=== PATIENT | male | born 1950 | race Caucasian/White ===

== ENCOUNTER 2017-01-06 10:38 | Inpatient (IN) | payer MEDICARE ==
[2017-01-06] MEDS ORDERED: CLINDAMYCIN 900 MG PREMIX IVPB 900 MG/50 ML BAG IVPB ONE (10:46)
--- NOTE | 2017-01-06 10:46 | PDOC ---
History of Present Illness - General Stated Complaint: FACIAL ABSCESS Time Seen by Provider: 01/06/17 10:45 Past History - Past Medical History Allergies/Adverse Reactions: Allergies Allergy/AdvReac Type Severity Reaction Status Date / Time Penicillins Allergy PAIN ALL Verified 01/06/17 10:46 OVER BODY Sulfa (Sulfonamide Allergy LOOSE LEGS Verified 01/06/17 10:46 Antibiotics) [id number]-201 Allergy Verified 01/06/17 10:46 THALLIUM Allergy Uncoded 02/09/16 15:05 Home Medications: Ambulatory Orders Albuterol Sulfate Inhaler - [Ventolin HFA Inhaler -] 2 inh PO Q4H PRN 08/02/14 Metoprolol Succinate [Toprol Xl] 75 mg PO DAILY 08/02/14 Multivitamins [Multivit ([facility] Form[facility])] 1 tab PO DAILY 08/02/14 Naproxen [Naprosyn -] 500 mg PO PRN PRN 08/02/14 Omeprazole [Prilosec] 20 mg PO DAILY 08/02/14 Salmeterol/Fluticasone [Advair 250Mcg/50Mcg -] 1 inh PO DAILY 09/19/14 Aspirin Coated [Ecotrin -] 325 mg PO DAILY 01/06/17 Oxycodone HCl/Acetaminophen [Percocet 10-325 mg Tablet] 1 each PO ASDIR PRN Asthma: Yes Cardiac Disorders: Yes (CARDIAC ARRHYTHMIA) COPD: Yes GI Disorders: Yes (REFLUX, ULCERATIVE COLITIS) Disorders: Yes (BPH) HTN: Yes Kidney Stones: Yes - Surgical History Cardiac Surgery: Yes (ANGIOPLASTY) Cholecystectomy: Yes Orthopedic Surgery: Yes (B/L ROTATOR CUFF) - Immunization History Immunization Up to Date: Yes - Suicide/Smoking/Psychosocial Hx Smoking Status: Yes Smoking History: Never smoked Have you smoked in the past 12 months: No Number of Cigarettes Smoked Daily: 0 If you are a former smoker, when did you quit?: 35 YEARS AGO Hx Alcohol Use: No Drug/Substance Use Hx: No Substance Use Type: None ED Treatment Course - LABORATORY CBC & Chemistry Diagram: 01/06/17 10:50 01/06/17 10:50 *DC/Admit/Observation/Transfer Diagnosis at time of Disposition: Facial cellulitis, Phlegmon Total knee replacement status Qualifiers: Laterality: right Qualified Code(s): Z96.651 - Presence of right artificial knee joint - Discharge Dispostion Condition at time of disposition: Stable Admit: Yes - Referrals - Patient Instructions - Post Discharge Activity
[2017-01-06 10:51] VITALS: BMI 33.2
[2017-01-06] MEDS ORDERED: DEXAMETHASONE SOD PHOSPHATE 10 MG/1 ML VIAL IVPUSH ONE (10:51)
[2017-01-06] MEDS ORDERED: DEXAMETHASONE SOD PHOSPHATE 10 MG/1 ML VIAL ONE (11:01)
[2017-01-06] MEDS ORDERED: CLINDAMYCIN PHOSPHATE 300 MG/2 ML VIAL ONE ×2 (11:01→11:03)
[2017-01-06] MEDS ORDERED: CLINDAMYCIN PHOSPHATE 600 MG/4 ML VIAL ONE (11:02)
[2017-01-06 11:26] LABS: BASOPHIL 0.7 % (0-2.0); MCH 30.6 pg (25.7-33.7); MCHC 33.6 g/dl (32.0-35.9); MEAN CELL VOLUME 91.2 fl (80-96); MEAN PLT VOLUME 10.4 fl (7.5-11.1); NEUTROPHILS 64.9 % (42.8-82.8); PLATELET COUNT 189 K/MM3 (134-434); RDW 12.9 % (11.9-15.9); WHITE BLOOD COUNT 9.7 K/mm3 (4.0-10.8)
[2017-01-06 11:46] LABS: ALBUMIN 3.8 g/dl (3.5-5.0); ALK PHOS 107 U/L (32-92); ANION GAP 7 (8-16); BILIRUBIN,TOTAL 0.8 mg/dl (0.2-1.0); CALCIUM 9.5 mg/dl (8.4-10.2); CO2 27 mmol/L (22-28); CREATININE 0.9 mg/dl (0.6-1.3); GLUCOSE,RANDOM 119 mg/dl (74-106); SGOT/AST 27 U/L (10-42); SGPT/ALT 29 U/L (10-40); TOT PROT 6.9 g/dl (6.4-8.3)
--- NOTE | 2017-01-06 16:40 | HP ---
CHIEF COMPLAINT: Left-sided facial abscess draining pus PCP: Dr. Prakash Ortho: Dr. Desai HISTORY OF PRESENT ILLNESS: 66 year-old man with a PMH significant for HTN, COPD, GERD, polychythemia vera ( last phlebotomized 4-5 years ago), and s/p right TKR 3 weeks ago. Patient noticed a bump on the lower left side of his face two days ago. The bump developed multiple pustules and the patient squeezed a large amount of pus. He noticed a fibrinous material hanging from his face which he removed and it was a white perforated sac. Patient states he had two leftover levofloxacin from an earlier illness and he took one dose two days ago, and one dose yesterday, before coming to the hospital. ER course was notable for: (1) BP 160/98 (2) CT facial bones: focal area of skin thickening with skin defect and subq fat stranding/phlegmon overlying ventral left mandibular body Recent Travel: No PAST MEDICAL HISTORY: Hypertension COPD GERD Polycythemia vera PAST SURGICAL HISTORY: Right total knee replacement x 3 weeks ([facility]) Bilateral rotator cuff repairs Social History: Smoking: no Alcohol: no Drugs: no Family History: Mother age 42 breast cancer; father age 49 accident; 1 brother a&w; 2 sisters, one with non-Hodgkins lymphoma in remission Allergies Penicillins Allergy (Verified 01/06/17 10:46) PAIN ALL OVER BODY Sulfa (Sulfonamide Antibiotics) Allergy (Verified 01/06/17 10:46) LOOSE LEGS thallium-201 Allergy (Verified 01/06/17 10:46) THALLIUM Allergy (Uncoded 02/09/16 15:05) HOME MEDICATIONS: Home Medications Medication Instructions Recorded Albuterol Sulfate Inhaler - 2 inh PO Q4H PRN 08/02/14 [Ventolin HFA Inhaler -] Metoprolol Succinate [Toprol Xl] 75 mg PO DAILY 08/02/14 Multivitamins [Multivit ([facility] 1 tab PO DAILY 08/02/14 Formulary)] Naproxen [Naprosyn -] 500 mg PO PRN PRN 08/02/14 Omeprazole [Prilosec] 20 mg PO DAILY 08/02/14 Salmeterol/Fluticasone [Advair 1 inh PO DAILY 09/19/14 250Mcg/50Mcg -] Aspirin Coated [Ecotrin -] 325 mg PO DAILY 01/06/17 Oxycodone HCl/Acetaminophen 1 each PO ASDIR PRN 01/06/17 [Percocet 10-325 mg Tablet] REVIEW OF SYSTEMS CONSTITUTIONAL: Absent: fever, chills, diaphoresis, generalized weakness, malaise, loss of appetite, weight change HEENT: Absent: rhinorrhea, nasal congestion, throat pain, throat swelling, difficulty swallowing, mouth swelling, ear pain, eye pain, visual changes CARDIOVASCULAR: Absent: chest pain, syncope, palpitations, irregular heart rate, lightheadedness , peripheral edema RESPIRATORY: Absent: cough, shortness of breath, dyspnea with exertion, orthopnea, wheezing, stridor, hemoptysis GASTROINTESTINAL: Absent: abdominal pain, abdominal distension, nausea, vomiting, diarrhea, constipation, melena, hematochezia GENITOURINARY: Absent: dysuria, frequency, urgency, hesitancy, hematuria, flank pain, genital pain MUSCULOSKELETAL: Absent: myalgia, arthralgia, joint swelling, back pain, neck pain SKIN: Present: erythematous lump on left side of face draining pus, punctured fibrinous sac removed by patient; chronic itchiness Absent: rash, itching, pallor HEMATOLOGIC/IMMUNOLOGIC: Absent: easy bleeding, easy bruising, lymphadenopathy, frequent infections ENDOCRINE: Absent: unexplained weight gain, unexplained weight loss, heat intolerance, cold intolerance NEUROLOGIC: Absent: headache, focal weakness or paresthesias, dizziness, unsteady gait, seizure, mental status changes, bladder or bowel incontinence PSYCHIATRIC: Absent: anxiety, depression, suicidal or homicidal ideation, hallucinations. PHYSICAL EXAMINATION Vital Signs - 24 hr 01/06/17 01/06/17 01/06/17 10:40 11:45 14:15 Temperature 98 F 98.1 F Pulse Rate 96 H Pulse Rate [ 81 87 Left Apical] Respiratory 18 16 16 Rate Blood Pressure 160/98 Blood Pressure 130/80 151/68 [Right Arm] O2 Sat by Pulse 97 98 99 Oximetry (%) 01/06/17 15:15 Temperature 98.1 F Pulse Rate 87 Pulse Rate [ Left Apical] Respiratory 16 Rate Blood Pressure 157/84 Blood Pressure [Right Arm] O2 Sat by Pulse 99 Oximetry (%) GENERAL: Awake, alert, and fully oriented, in no acute distress. HEAD/FACE: Wound over the left mandible, 1cm in diameter, 0.5cm deep; area of surrounding induration 1.5cm H x 3cm W; could not express pus; mild purulent drainage on dressing EYES: Pupils equal, round and reactive to light, extraocular movements intact, sclera anicteric, conjunctiva clear. No ptosis. EARS, NOSE, THROAT: Ears normal, nares patent, oropharynx clear without exudates. Moist mucous membranes. NECK: Normal range of motion, supple without lymphadenopathy, JVD, or masses. LUNGS: Breath sounds equal, clear to auscultation bilaterally. No wheezes, and no crackles. No accessory muscle use. HEART: Regular rate and rhythm, normal S1 and S2 without murmur, rub or gallop. ABDOMEN: Soft, nontender, not distended, normoactive bowel sounds, no guarding, no rebound, no masses. MUSCULOSKELETAL: Normal range of motion at all joints. No bony deformities or tenderness. No CVA tenderness. UPPER EXTREMITIES: 2+ pulses, warm, well-perfused. No cyanosis. No clubbing. No peripheral edema. LOWER EXTREMITIES: 2+ pulses, warm, well-perfused. No calf tenderness. No peripheral edema. Right knee surgical scar well-healed. NEUROLOGICAL: Cranial nerves II-XII intact. Normal speech. Normal gait. PSYCHIATRIC: Cooperative. Good eye contact. Appropriate mood and affect. SKIN: Warm, dry, normal turgor Laboratory Results - last 24 hr 01/06/17 01/06/17 01/06/17 10:50 10:50 10:50 WBC 9.7 RBC 4.55 Hgb 13.9 D Hct 41.5 MCV 91.2 MCH 30.6 MCHC 33.6 RDW 12.9 Plt Count 189 MPV 10.4 Neutrophils % 64.9 Lymphocytes % 11.4 D Monocytes % 11.0 H Eosinophils % 12.0 H Basophils % 0.7 ESR Sodium 135 L Potassium 4.3 Chloride 101 Carbon Dioxide 27 Anion Gap 7 L BUN 32 H D Creatinine 0.9 D Creat Clearance w eGFR > 60 Random Glucose 119 H D Lactic Acid 1.5 Calcium 9.5 Total Bilirubin 0.8 D AST 27 ALT 29 Alkaline Phosphatase 107 H C-Reactive Protein Total Protein 6.9 Albumin 3.8 01/06/17 01/06/17 10:50 10:50 WBC RBC Hgb Hct MCV MCH MCHC RDW Plt Count MPV Neutrophils % Lymphocytes % Monocytes % Eosinophils % Basophils % ESR 35 H Sodium Potassium Chloride Carbon Dioxide Anion Gap BUN Creatinine Creat Clearance w eGFR Random Glucose Lactic Acid Calcium Total Bilirubin AST ALT Alkaline Phosphatase C-Reactive Protein 3.9 H Total Protein Albumin ASSESSMENT/PLAN 66 year-old man with a PMH significant for HTN, COPD, GERD, polychythemia vera, and s/p right TKR 3 weeks ago. Admitted for facial abscess requiring IV antibiotics in the setting of recent TKR. Facial abscess --CT shows phlegmon overlying the left mandibular body --Vanc x 1 dose, levofloxacin IV, and clindamycin IV (PCN allergic) --blood cultures pending; patient self-treated with levaquin PO x 2 doses prior to arrival --ID consult requested --if needs I&D, may need oral maxillofacial surgeon and transfer S/p right TKR x 3 weeks --incision is well-healed --on full-dose ASA; will increase to BID for post-surgical prosthetic prophylaxis --Protonix for GI prophylaxis --percocet PRN Hypertension --continue Toprol XL COPD --stable, no acute issues --continue albuterol and Advair inhalers GERD --Protonix Polycythemia vera Elevated alk phos --last phlebotomized 4-5 years ago but chronic itchiness is a symptom of PCV --Hct is well below 60 so no immediate indication for phlebotomy --needs outpatient follow up --monitor LFTs F/E/N Fluids: PO intake adequate Electrolytes: replete as indicated Nutrition: low sodium DVT prophylaxis: subq heparin, oob, ambulation Physical therapy evaluation since s/p TKR Dispo: continues to require inpatient care. Full code. Visit type - Emergency Visit Emergency Visit: Yes ED Registration Date: 01/06/17 Care time: The patient presented to the Emergency Department on the above date and was hospitalized for further evaluation of their emergent condition. - New Patient This patient is new to me today: Yes Date on this admission: 01/07/17 - Critical Care Critical Care patient: No
--- NOTE | 2017-01-06 18:22 | RAPID ---
Physical Examination Vital Signs: Vital Signs Temperature 98.1 F 01/06/17 15:15 Pulse Rate 87 01/06/17 15:15 Respiratory Rate 16 01/06/17 15:15 Blood Pressure 157/84 01/06/17 15:15 O2 Sat by Pulse Oximetry (%) 99 01/06/17 15:15 Labs: CBC, BMP 01/06/17 10:50 01/06/17 10:50
[2017-01-06] MEDS ORDERED: PIPERACILLIN/TAZOB 3.375 GM 50 ML IVPB SCH (19:45)
[2017-01-06] MEDS ORDERED: VANCOMYCIN 1,500 MG in DEXTROSE 5%-WATER - 250 ML IVPB SCH (19:45)
[2017-01-06] MEDS: CLINDAMYCIN 600MG PREMIX IVPB 600 MG/50 ML BAG IVPB SCH (20:38)
[2017-01-06] MEDS ORDERED: VANCOMYCIN 1,500 MG in DEXTROSE 5%-WATER - 500 ML IVPB ONE (21:15)
[2017-01-06] MEDS ORDERED: LEVOFLOXACIN 500 MG IVPB 500 MG/100 ML BAG IVPB ONE (21:15)
[2017-01-06] MEDS: POTASSIUM CHLORIDE TABS 20 MEQ TABLET.ER (FP) PO SCH (22:01)
[2017-01-07] MEDS ORDERED: ALBUTEROL SO4 18 GM HFA INHALER IH PRN (02:25)
[2017-01-07] MEDS ORDERED: FLUTICASONE/SALMETEROL 100 MCG/50 MCG DISKUS IH SCH (02:30)
[2017-01-07] MEDS: CLINDAMYCIN 600MG PREMIX IVPB 600 MG/50 ML BAG IVPB SCH (02:39)
[2017-01-07] MEDS: POTASSIUM CHLORIDE TABS 20 MEQ TABLET.ER (FP) PO SCH (03:44)
[2017-01-07 07:51] LABS: MCH 31.4 pg (25.7-33.7); MCHC 34.5 g/dl (32.0-35.9); MEAN CELL VOLUME 91.1 fl (80-96); PLATELET COUNT 207 K/MM3 (134-434); RDW 12.9 % (11.9-15.9); WHITE BLOOD COUNT 11.8 K/mm3 (4.0-10.8)
[2017-01-07 08:09] LABS: ALBUMIN 3.5 g/dl (3.5-5.0); ALK PHOS 97 U/L (32-92); ANION GAP 6 (8-16); CALCIUM 9.5 mg/dl (8.4-10.2); CO2 24 mmol/L (22-28); CREATININE 0.7 mg/dl (0.6-1.3); GLUCOSE,RANDOM 119 mg/dl (74-106); MAGNESIUM 1.9 mg/dL (1.8-2.4); SGOT/AST 24 U/L (10-42); SGPT/ALT 30 U/L (10-40); TOT PROT 6.5 g/dl (6.4-8.3)
[2017-01-07] MEDS: VANCOMYCIN 1,000 MG in DEXTROSE 5%-WATER - 250 ML IVPB SCH ×2 (08:30→20:39)
[2017-01-07] MEDS ORDERED: PT OWN MED DRAWER 7, Y5N ONE (09:22)
[2017-01-07] MEDS: PANTOPRAZOLE 40 MG TABLET (FP) PO SCH (09:30)
[2017-01-07] MEDS: MULTIVITAMINS (DAILY MVI) TABLET (FP) PO SCH (09:30)
[2017-01-07] MEDS: METOPROLOL SUCCINATE 50 MG TAB.SR.24H (FP) PO SCH (09:30)
[2017-01-07] MEDS: ASPIRIN 325 MG ENTERIC COATED TABLET (FP) PO SCH ×2 (09:30→21:23)
[2017-01-07] MEDS: HEPARIN NA (PORCINE) 5,000 UNITS/ML 1ML VIAL SQ SCH ×2 (09:32→21:23)
[2017-01-07] MEDS: FLUTICASONE/SALMETEROL 100 MCG/50 MCG DISKUS IH SCH ×2 (09:32→21:23)
[2017-01-07] MEDS ORDERED: ASPIRIN 325 MG ENTERIC COATED TABLET (FP) PO SCH (10:00)
[2017-01-07] MEDS ORDERED: LEVOFLOXACIN 500 MG IVPB 500 MG/100 ML BAG IVPB SCH (10:00)
[2017-01-07] MEDS ORDERED: LEVOFLOXACIN 500 MG IVPB 500 MG/100 ML BAG IVPB ONE (10:00)
--- NOTE | 2017-01-07 13:33 | PN ---
Physical Exam: SUBJECTIVE: Patient seen and examined. OBJECTIVE: Vital Signs Period Temp Pulse Resp BP Sys/Bear Pulse Ox Last 24 Hr 98.1 F-98.6 F 78-87 16-16 151-157/68-84 96-99 GENERAL: The patient is awake, alert, and fully oriented, in no acute distress. HEAD: Normal with no signs of trauma. Draining non-fluctuant area noted to left mandible. LUNGS: Breath sounds equal, clear to auscultation bilaterally, no wheezes, no crackles, no accessory muscle use. HEART: Regular rate and rhythm, S1, S2 without murmur, rub or gallop. ABDOMEN: Soft, nontender, nondistended, normoactive bowel sounds, no guarding, no rebound, no hepatosplenomegaly, no masses. EXTREMITIES: 2+ pulses, warm, well-perfused, no edema. Surgical incisions c/d/i and open to air. NEUROLOGICAL: Cranial nerves II through XII grossly intact. Normal speech, gait not observed. PSYCH: Normal mood, normal affect. SKIN: Warm, dry, normal turgor, no rashes or lesions noted Laboratory Results - last 24 hr 01/07/17 01/07/17 07:41 07:41 WBC 11.8 H RBC 4.16 Hgb 13.1 Hct 37.9 MCV 91.1 MCH 31.4 MCHC 34.5 RDW 12.9 Plt Count 207 MPV 10.0 Sodium 134 L Potassium 4.8 Chloride 104 Carbon Dioxide 24 Anion Gap 6 L BUN 22 H D Creatinine 0.7 D Creat Clearance w eGFR > 60 Random Glucose 119 H Calcium 9.5 Magnesium 1.9 Total Bilirubin 1.0 D AST 24 ALT 30 Alkaline Phosphatase 97 H Total Protein 6.5 Albumin 3.5 Active Medications Generic Name Dose Route Start Last Admin Trade Name Freq PRN Reason Stop Dose Admin Albuterol Sulfate 2 puff 01/07/17 02:25 Ventolin Hfa Inhaler - IH Q4H PRN WHEEZING Aspirin 325 mg 01/07/17 10:00 01/07/17 09:30 Ecotrin - PO 325 mg BID TARA Administration Heparin Sodium (Porcine) 5,000 unit 01/07/17 10:00 01/07/17 09:32 Heparin - SQ 5,000 unit TID TARA Administration Levofloxacin 500 mg in 100 mls @ 100 mls/hr 01/07/17 10:00 01/07/17 09:30 Levaquin 500 Mg Premixed Ivpb - IVPB 100 mls/hr DAILY TARA Administration Vancomycin HCl 1,000 mg/ 250 mls @ 200 mls/hr 01/07/17 08:30 01/07/17 08:30 Dextrose IVPB 200 mls/hr Q12H TARA Administration Metoprolol Succinate 75 mg 01/07/17 10:00 01/07/17 09:30 Toprol Xl - PO 75 mg DAILY TARA Administration Multivitamins/Minerals/Vitamin C 1 tab 01/07/17 10:00 01/07/17 09:30 Tab-A-Vit - PO 1 tab DAILY TARA Administration Oxycodone/Acetaminophen 1 combo 01/06/17 21:36 01/06/17 22:01 Percocet 5/325 - PO 1 combo Q6H PRN Administration PAIN LEVEL 6-10 Pantoprazole Sodium 40 mg 01/07/17 10:00 01/07/17 09:30 Protonix - PO 40 mg DAILY TARA Administration Fluticasone/Salmeterol 1 puff 01/07/17 10:00 01/07/17 09:32 Advair 100mcg/50mcg - IH 1 puff BID TARA Administration Imaging: EXAM#: TYPE/EXAM: RESULT: [id number] CT/FACIAL BONES CT W/O CONTRAST EXAM: CT facial bones without contrast. INDICATION: Facial abscess. TECHNIQUE: Axial noncontrast CT of the facial bones with coronal and sagittal reformations. COMPARISON: None available. FINDINGS: Evaluation for abscess/ drainable collection is limited without IV contrast. There is focal area of skin thickening with stranding and soft tissue in the subcutaneous fat overlying the ventral left mandibular body. There is a focal skin defect at this level. There is thickening of the platysma muscles. The mandibles are dentulous. There is no significant periapical lucency. No evidence of osseous destruction. There is mild mucosal thickening in the maxillary sinuses. The ostiomeatal complexes are patent. There are postsurgical changes in the right sinonasal cavity. Mild mucosal thickening present along bilateral anterior ethmoid air cells and right frontal sinus. The sphenoid sinuses are hypoplastic with small retention cyst in the right sphenoid sinus and small volume of fluid in the left sphenoid sinus. The left sphenoethmoidal is obscured. The nasal septum is deviated left. Bony rice of the orbits are intact. Globes are round and symmetric. Retrobulbar fat is maintained. There is cervical spondylosis. There is calcific atherosclerosis along bilateral carotid bifurcations, cervical internal carotid arteries and intradural vertebral arteries. IMPRESSION : Focal area of skin thickening with skin defect and subcutaneous fat stranding/ phlegmon overlying the ventral left mandibular body. No evidence of drainable collection, within the limitations of no IV contrast. Reported By: Ant Bunn DO 01/06/17 1312 ASSESSMENT/PLAN: A: 66 year-old man with a PMH significant for HTN, COPD, GERD, polychythemia vera, and s/p right TKR 3 weeks ago. Admitted for facial abscess requiring IV antibiotics in the setting of recent TKR. Facial abscess - continue Vancomycin 1g bid - stop levofloxacin and clindamycin - blood cultures pending - wound cx prelim- presumptive MRSA - ID consult requested - will transfer if needs [facility] for I&D S/p right TKR x 3 weeks - incision is well-healed - ASA bid - Protonix for GI prophylaxis - percocet PRN Leukocytosis - continue vancomycin 1g bid - trend CBC Hypertension - continue Toprol XL h/o COPD - stable - continue albuterol and Advair inhalers GERD - Protonix Polycythemia vera - last phlebotomized 4-5 years ago but chronic itchiness is a symptom of PCV - Hct normal - needs outpatient follow up - monitor LFTs F/E/N - Low Na diet DVT prophylaxis - sqh - oob Physical therapy evaluation since s/p TKR Dispo: continues to require inpatient care. Code Status- Full code. Visit type - Emergency Visit Emergency Visit: Yes ED Registration Date: 01/06/17 Care time: The patient presented to the Emergency Department on the above date and was hospitalized for further evaluation of their emergent condition. - New Patient This patient is new to me today: Yes Date on this admission: 01/07/17 - Critical Care Critical Care patient: No
--- NOTE | 2017-01-07 16:04 | PN ---
Progress Note (short form) - Note Progress Note: ID Consult dictated Facial abscess, probable MRSA Leukocytosis PCN/Sulfa allergies Await c/s Continue vancomycin Contact precautions
--- NOTE | 2017-01-07 19:57 | CONS ---
DATE OF CONSULTATION: DATE OF DICTATION: 01/07/2017 HISTORY OF PRESENT ILLNESS: The patient is a 66-year-old male evaluated for a soft tissue abscess of the left face. The patient was admitted to the hospital on January 06, 2017. He reports that approximately 2 to 3 days prior to admission, he had developing developed a "bump" on his left jaw area. He subsequently noted pustules from which he squeezed pus. The patient had Levaquin at home from a previous illness and took one or two doses of this. The area became progressively more swollen and erythematous. He presented to the hospital where he was found to have a soft tissue abscess of the left mandibular area. He was admitted to the hospital and empirically treated with vancomycin, Zosyn and clindamycin. His course was complicated by an elevated white blood cell count. A CT scan was obtained and showed a focal area of skin thickening in the left submandibular area with fat stranding and phlegmon with no evidence of drainable collection. A wound culture is now growing presumptive MRSA. The patient denies any associated fever or chills. PAST MEDICAL HISTORY: Positive for COPD, hypertension, gastroesophageal reflux, benign prostatic hypertrophy, polycythemia vera. ALLERGIES: PENICILLIN AND SULFA. (The patient had developed generalized body pain with PENICILLIN and "loose legs" with SULFA.) MEDICATIONS: Albuterol, metoprolol, Naprosyn, Prilosec, Advair, Ecotrin, aspirin. PAST SURGICAL HISTORY: Status post right total knee replacement approximately three weeks prior to admission. SYSTEMS REVIEW: Neurologic: No loss of consciousness, seizure, focal weakness. Cardiac: Negative for chest pain or palpitations. Respiratory: Negative for cough or sputum production. Gastrointestinal: Positive for gastroesophageal reflux. Genitourinary: Negative for urinary tract infection. LAB DATA: White count 11.8, hematocrit 37.9, platelet count 207, BUN 22, creatinine 0.7. Blood cultures are preliminarily negative. Wound culture is growing presumptive MRSA. PHYSICAL EXAMINATION: GENERAL: The patient is awake and alert. He does not appear acutely toxic. VITALS: Temperature 98.2, blood pressure 153/86, pulse 78 and regular, respirations 18 per minute. HEENT: Sclerae anicteric. On examination of the face, there is an approximately 3- to 4-cm area of induration present in the left mid submandibular area. There is no fluctuance. It is exquisitely tender and slightly erythematous. There is no expressible pus. However, there is drainage noted on the sterile dressing. There is no palpable adenopathy. CARDIOVASCULAR: Heart sounds S1, S2. LUNGS: Clear. ABDOMEN: Soft and nontender. EXTREMITIES: Status post right total knee replacement. There is a surgical wound that appears to be healing well without evidence of infection. IMPRESSION: 1. Facial abscess; probable methicillin-resistant Staphylococcus aureus. 2. Leukocytosis. 3. PENICILLIN AND SULFA ALLERGIES. PLAN: 1. Await culture results. 2. Continue vancomycin. 3. Clinically and radiographically, there does not appear to be a drainable collection. The patient reports significant improvement on his IV antibiotic therapy. Should there be continued improvement, we may substitute oral antibiotic therapy in the next 24 hours based on susceptibilities. 4. Contact precautions. 5. We will follow this patient. Thank you for the kind referral. SHASHANK MARIANO M.D. [id number]
[2017-01-08] MEDS: HEPARIN NA (PORCINE) 5,000 UNITS/ML 1ML VIAL SQ SCH ×3 (06:17→21:34)
[2017-01-08] MEDS: VANCOMYCIN 1,000 MG in DEXTROSE 5%-WATER - 250 ML IVPB SCH ×2 (08:39→20:36)
[2017-01-08 08:50] LABS: BASOPHIL 0.8 % (0-2.0); EOSINOPHIL 11.9 % (0-4.5); MCH 30.9 pg (25.7-33.7); MCHC 33.7 g/dl (32.0-35.9); MEAN CELL VOLUME 91.9 fl (80-96); MEAN PLT VOLUME 10.9 fl (7.5-11.1); NEUTROPHILS 49.7 % (42.8-82.8); PLATELET COUNT 206 K/MM3 (134-434); RDW 12.8 % (11.9-15.9); WHITE BLOOD COUNT 9.8 K/mm3 (4.0-10.8)
[2017-01-08] MEDS ORDERED: PT OWN MED DRAWER 7, Y5N ONE (09:11)
[2017-01-08 09:16] LABS: ALBUMIN 3.3 g/dl (3.5-5.0); ALK PHOS 88 U/L (32-92); ANION GAP 9 (8-16); CO2 25 mmol/L (22-28); CREATININE 0.8 mg/dl (0.6-1.3); GLUCOSE,RANDOM 88 mg/dl (74-106); SGOT/AST 22 U/L (10-42); SGPT/ALT 28 U/L (10-40); TOT PROT 5.8 g/dl (6.4-8.3)
[2017-01-08] MEDS: MULTIVITAMINS (DAILY MVI) TABLET (FP) PO SCH (09:17)
[2017-01-08] MEDS: ASPIRIN 325 MG ENTERIC COATED TABLET (FP) PO SCH ×2 (09:17→21:35)
[2017-01-08] MEDS: PANTOPRAZOLE 40 MG TABLET (FP) PO SCH (09:17)
[2017-01-08] MEDS: METOPROLOL SUCCINATE 50 MG TAB.SR.24H (FP) PO SCH (09:17)
[2017-01-08] MEDS: FLUTICASONE/SALMETEROL 100 MCG/50 MCG DISKUS IH SCH ×2 (09:17→21:36)
--- NOTE | 2017-01-08 09:19 | PN ---
Progress Note, Physician History of Present Illness: Lab reports + Blood c/s GPCCL x1 Reports less L facial pain and swelling Continued wound drainage Afebrile WBC 11.8 Wound c/s presumptive MRSA - Current Medication List Current Medications: Active Medications Albuterol Sulfate (Ventolin Hfa Inhaler -) 2 puff IH Q4H PRN PRN Reason: WHEEZING Aspirin (Ecotrin -) 325 mg PO BID [facility] Last Admin: 01/07/17 21:23 Dose: 325 mg Heparin Sodium (Porcine) (Heparin -) 5,000 unit SQ TID [facility] Last Admin: 01/08/17 06:17 Dose: 5,000 unit Vancomycin HCl 1,000 mg/ (Dextrose) 250 mls @ 200 mls/hr IVPB Q12H [facility] Last Admin: 01/08/17 08:39 Dose: 200 mls/hr Metoprolol Succinate (Toprol Xl -) 75 mg PO DAILY [facility] Last Admin: 01/07/17 09:30 Dose: 75 mg Multivitamins/Minerals/Vitamin C (Tab-A-Vit -) 1 tab PO DAILY [facility] Last Admin: 01/07/17 09:30 Dose: 1 tab Oxycodone/Acetaminophen (Percocet 5/325 -) 1 combo PO Q6H PRN PRN Reason: PAIN LEVEL 6-10 Last Admin: 01/08/17 01:27 Dose: 1 combo Pantoprazole Sodium (Protonix -) 40 mg PO DAILY [facility] Last Admin: 01/07/17 09:30 Dose: 40 mg Fluticasone/Salmeterol (Advair 100mcg/50mcg -) 1 puff IH BID [facility] Last Admin: 01/07/17 21:23 Dose: 1 puff - Objective Vital Signs: Vital Signs Temperature 97.8 F 01/08/17 05:00 Pulse Rate 75 01/08/17 05:00 Respiratory Rate 20 01/08/17 05:00 Blood Pressure 136/70 01/08/17 05:00 O2 Sat by Pulse Oximetry (%) 96 01/08/17 01:19 Constitutional: Yes: No Distress Eyes: Yes: Conjunctiva Clear HENT: Yes: Other (decreased swelling L submandibular area + induration. No fluctuance. + drainage on dressing) Cardiovascular: Yes: Regular Rate and Rhythm, S1, S2 Respiratory: Yes: CTA Bilaterally Gastrointestinal: Yes: Normal Bowel Sounds, Soft. No: Tenderness Extremities: Yes: Other (+ Healed surgical wound R Knee No erythema/ warmth/ tenderness) Labs: CBC, BMP 01/08/17 05:40 Assessment/Plan L facial abscess- probable MRSA + Blood c/s GPCCL possible sepsis secondary to skin source S/P R TKR Facial abscess improved Concerned about possible staph bacteremia in light of recent R TKR Await BC result Continue vancomycin. Check trough level. Contact precautions.
--- NOTE | 2017-01-08 11:48 | PN ---
Physical Exam: SUBJECTIVE: Patient seen and examined OBJECTIVE: Vital Signs Period Temp Pulse Resp BP Sys/Bear Pulse Ox Last 24 Hr 97.7 F-98.3 F 73-79 18-20 128-153/66-91 94-97 GENERAL: The patient is awake, alert, and fully oriented, in no acute distress. HEAD: Normal with no signs of trauma. EYES: PERRL, extraocular movements intact, sclera anicteric, conjunctiva clear. No ptosis. ENT: Ears normal, nares patent, oropharynx clear without exudates, moist mucous membranes. NECK: Trachea midline, full range of motion, supple. LUNGS: Breath sounds equal, clear to auscultation bilaterally, no wheezes, no crackles, no accessory muscle use. HEART: Regular rate and rhythm, S1, S2 without murmur, rub or gallop. ABDOMEN: Soft, nontender, nondistended, normoactive bowel sounds, no guarding, no rebound, no hepatosplenomegaly, no masses. EXTREMITIES: 2+ pulses, warm, well-perfused, Rt knee with mild,edema, s/p TKR , incision remains clean and dry NEUROLOGICAL: Cranial nerves II through XII grossly intact. Normal speech, gait not observed. PSYCH: Normal mood, normal affect. SKIN: left submandibular area,facial cellulitis with small amount sero- sanguineous drainage,dsg intact Laboratory Results - last 24 hr 01/07/17 01/08/17 01/08/17 07:41 05:40 05:40 WBC 9.8 RBC 4.25 Hgb 13.2 Hct 39.1 MCV 91.9 MCH 30.9 MCHC 33.7 RDW 12.8 Plt Count 206 MPV 10.9 Neutrophils % 49.7 D Lymphocytes % 27.1 D Monocytes % 10.5 H Eosinophils % 11.9 H Basophils % 0.8 Manual Slide Review No Result Required. Sodium 135 L Potassium 4.4 Chloride 101 Carbon Dioxide 25 Anion Gap 9 BUN 23 H Creatinine 0.8 Creat Clearance w eGFR > 60 Random Glucose 88 D Calcium 9.0 Total Bilirubin 1.0 AST 22 ALT 28 Alkaline Phosphatase 88 Total Protein 5.8 L Albumin 3.3 L Vancomycin Pre-Dose 01/08/17 08:40 WBC RBC Hgb Hct MCV MCH MCHC RDW Plt Count MPV Neutrophils % Lymphocytes % Monocytes % Eosinophils % Basophils % Manual Slide Review Sodium Potassium Chloride Carbon Dioxide Anion Gap BUN Creatinine Creat Clearance w eGFR Random Glucose Calcium Total Bilirubin AST ALT Alkaline Phosphatase Total Protein Albumin Vancomycin Pre-Dose 9.659 Active Medications Generic Name Dose Route Start Last Admin Trade Name Freq PRN Reason Stop Dose Admin Albuterol Sulfate 2 puff 01/07/17 02:25 Ventolin Hfa Inhaler - IH Q4H PRN WHEEZING Aspirin 325 mg 01/07/17 10:00 01/08/17 09:17 Ecotrin - PO 325 mg BID TARA Administration Heparin Sodium (Porcine) 5,000 unit 01/07/17 10:00 01/08/17 06:17 Heparin - SQ 5,000 unit TID TARA Administration Vancomycin HCl 1,000 mg/ 250 mls @ 200 mls/hr 01/07/17 08:30 01/08/17 08:39 Dextrose IVPB 200 mls/hr Q12H TARA Administration Metoprolol Succinate 75 mg 01/07/17 10:00 01/08/17 09:17 Toprol Xl - PO 75 mg DAILY TARA Administration Multivitamins/Minerals/Vitamin C 1 tab 01/07/17 10:00 01/08/17 09:17 Tab-A-Vit - PO 1 tab DAILY TARA Administration Oxycodone/Acetaminophen 1 combo 01/06/17 21:36 01/08/17 01:27 Percocet 5/325 - PO 1 combo Q6H PRN Administration PAIN LEVEL 6-10 Pantoprazole Sodium 40 mg 01/07/17 10:00 01/08/17 09:17 Protonix - PO 40 mg DAILY TARA Administration Fluticasone/Salmeterol 1 puff 01/07/17 10:00 01/08/17 09:17 Advair 100mcg/50mcg - IH 1 puff BID TARA Administration CT facial bones without contrast: Focal area of skin thickening with skin defect and subcutaneous fat stranding/phlegmon overlying the ventral left mandibular body. No evidence of drainable collection, within the limitations of no IV contrast. ASSESSMENT/PLAN: This is a 66 year-old man with a PMH significant for HTN, COPD, GERD, polychythemia vera, and s/p right TKR 3 weeks ago. Admitted for facial abscess requiring IV antibiotics in the setting of recent TKR. *Facial abscess - continue Vancomycin 1g bid - stop levofloxacin and clindamycin - blood cultures + for presumptive MRSA - wound cx prelim- presumptive MRSA - ID consult input appreciated - will transfer if needs OMFS for I&D - afebrile, wbc - normalized *S/p right TKR x 3 weeks - incision is well-healed,no redness or signs of infection noted - ASA bid - Protonix for GI prophylaxis - Percocet PRN *Leukocytosis- resolved - continue vancomycin 1g bid - trend CBC *Hypertension - continue Toprol XL *h/o COPD- stable - continue albuterol and Advair inhalers *GERD - Protonix *Polycythemia vera - last phlebotomized 4-5 years ago but chronic itchiness is a symptom of PCV - Hct normal - needs outpatient follow up - LFTs -wnl F/E/N - Low Na diet DVT prophylaxis: Heparin SQ, OOB Physical therapy evaluation since s/p TKR Dispo: continues to require inpatient care. Code Status- Full code. Visit type - Emergency Visit Emergency Visit: Yes ED Registration Date: 01/06/17 Care time: The patient presented to the Emergency Department on the above date and was hospitalized for further evaluation of their emergent condition. - New Patient This patient is new to me today: Yes Date on this admission: 01/08/17 - Critical Care Critical Care patient: No
[2017-01-08] MEDS: VANCOMYCIN 1 GRAM (PRE-DOCKED) 1,000 MG/250 ML BAG IVPB SCH (21:07)
[2017-01-09] MEDS: HEPARIN NA (PORCINE) 5,000 UNITS/ML 1ML VIAL SQ SCH ×2 (06:30→21:21)
[2017-01-09] MEDS: ASPIRIN 325 MG ENTERIC COATED TABLET (FP) PO SCH (09:00)
[2017-01-09] MEDS: PANTOPRAZOLE 40 MG TABLET (FP) PO SCH (09:00)
[2017-01-09] MEDS: MULTIVITAMINS (DAILY MVI) TABLET (FP) PO SCH (09:00)
[2017-01-09] MEDS: VANCOMYCIN 1 GRAM (PRE-DOCKED) 1,000 MG/250 ML BAG IVPB SCH ×2 (09:01→20:48)
[2017-01-09] MEDS: METOPROLOL SUCCINATE 50 MG TAB.SR.24H (FP) PO SCH (09:01)
[2017-01-09] MEDS: FLUTICASONE/SALMETEROL 100 MCG/50 MCG DISKUS IH SCH ×2 (09:01→21:22)
--- NOTE | 2017-01-09 09:07 | PN ---
Progress Note, Physician History of Present Illness: Lab reports presumptive MRSA in blood L facial pain and swelling resolved Minimal wound drainage Afebrile WBC WNL - Current Medication List Current Medications: Active Medications Albuterol Sulfate (Ventolin Hfa Inhaler -) 2 puff IH Q4H PRN PRN Reason: WHEEZING Aspirin (Ecotrin -) 325 mg PO BID [facility] Last Admin: 01/09/17 09:00 Dose: 325 mg Heparin Sodium (Porcine) (Heparin -) 5,000 unit SQ TID [facility] Last Admin: 01/09/17 06:30 Dose: 5,000 unit Vancomycin HCl (Vancomycin (Pre-Docked)) 1,000 mg in 250 mls @ 200 mls/hr IVPB Q12H [facility] Last Admin: 01/09/17 09:01 Dose: 200 mls/hr Metoprolol Succinate (Toprol Xl -) 75 mg PO DAILY [facility] Last Admin: 01/09/17 09:01 Dose: 75 mg Multivitamins/Minerals/Vitamin C (Tab-A-Vit -) 1 tab PO DAILY [facility] Last Admin: 01/09/17 09:00 Dose: 1 tab Oxycodone/Acetaminophen (Percocet 5/325 -) 1 combo PO Q6H PRN PRN Reason: PAIN LEVEL 6-10 Last Admin: 01/09/17 06:29 Dose: 1 combo Pantoprazole Sodium (Protonix -) 40 mg PO DAILY [facility] Last Admin: 01/09/17 09:00 Dose: 40 mg Fluticasone/Salmeterol (Advair 100mcg/50mcg -) 1 puff IH BID [facility] Last Admin: 01/09/17 09:01 Dose: 1 puff - Objective Vital Signs: Vital Signs Temperature 98.1 F 01/09/17 05:55 Pulse Rate 88 01/09/17 05:55 Respiratory Rate 19 01/09/17 08:13 Blood Pressure 139/81 01/09/17 05:55 O2 Sat by Pulse Oximetry (%) 97 01/09/17 08:13 Constitutional: Yes: No Distress Eyes: Yes: Conjunctiva Clear HENT: Yes: Other (L submandibular swelling and tenderness nearly all resolved Minimal drainage on dressing) Cardiovascular: Yes: Regular Rate and Rhythm, S1, S2. No: Murmur Respiratory: Yes: CTA Bilaterally Gastrointestinal: Yes: Normal Bowel Sounds, Soft. No: Tenderness Extremities: Yes: Other (R TKR mild swelling No erythema/ warmth) Labs: CBC, BMP 01/08/17 05:40 01/08/17 05:40 Assessment/Plan L facial abscess- MRSA + Blood c/s presumptive MRSA S/P R TKR Facial abscess nearly resolved Concerned about possible MRSA in light of recent R TKR Await final BC result Continue vancomycin. Repeat BC Will need echo if BC +MRSA Contact precautions.
[2017-01-09 11:07] LABS: ALBUMIN 3.6 g/dl (3.5-5.0); ALK PHOS 105 U/L (32-92); ANION GAP 4 (8-16); BILIRUBIN,TOTAL 1.2 mg/dl (0.2-1.0); CO2 24 mmol/L (22-28); CREATININE 0.8 mg/dl (0.6-1.3); GLUCOSE,RANDOM 149 mg/dl (74-106); MAGNESIUM 1.8 mg/dL (1.8-2.4); SGOT/AST 30 U/L (10-42); SGPT/ALT 41 U/L (10-40); TOT PROT 6.2 g/dl (6.4-8.3)
[2017-01-09 11:15] LABS: MCH 31.2 pg (25.7-33.7); MCHC 34.6 g/dl (32.0-35.9); MEAN CELL VOLUME 90.4 fl (80-96); MEAN PLT VOLUME 10.7 fl (7.5-11.1); PLATELET COUNT 226 K/MM3 (134-434); RDW 13.1 % (11.9-15.9); WHITE BLOOD COUNT 9.4 K/mm3 (4.0-10.8)
--- NOTE | 2017-01-09 11:22 | PN ---
Physical Exam: SUBJECTIVE: Patient seen and examined, reports feeling better, denies any tactile fevers OBJECTIVE: Patient is a 66 year-old man with a PMH significant for HTN, COPD, GERD, polychythemia vera, and s/p right TKR 3 weeks ago. Admitted for facial abscess requiring IV antibiotics in the setting of recent TKR. Vital Signs Period Temp Pulse Resp BP Sys/Bear Pulse Ox Last 24 Hr 97.9 F-98.1 F 74-88 18-19 138-139/72-81 97-98 GENERAL: The patient is awake, alert, and fully oriented, in no acute distress. HEAD: Normal with no signs of trauma. EYES: PERRL, extraocular movements intact, sclera anicteric, conjunctiva clear. No ptosis. ENT: Ears normal, nares patent, oropharynx clear without exudates, moist mucous membranes. NECK: Trachea midline, full range of motion, supple. LUNGS: Breath sounds equal, clear to auscultation bilaterally, no wheezes, no crackles, no accessory muscle use. HEART: Regular rate and rhythm, S1, S2 without murmur, rub or gallop. ABDOMEN: Soft, nontender, nondistended, normoactive bowel sounds, no guarding, no rebound, no hepatosplenomegaly, no masses. EXTREMITIES: 2+ pulses, warm, well-perfused, no edema. RIGHT LOWER EXTREMITY: suture line to anterior knee, well approximated NEUROLOGICAL: Cranial nerves II through XII grossly intact. Normal speech, gait not observed. PSYCH: Normal mood, normal affect. SKIN: Warm, dry, normal turgor, no rashes or lesions noted, abscess submandible , no erythema no induration noted Laboratory Results - last 24 hr 01/09/17 01/09/17 10:00 10:00 WBC 9.4 RBC 4.44 Hgb 13.9 Hct 40.1 MCV 90.4 MCH 31.2 MCHC 34.6 RDW 13.1 Plt Count 226 MPV 10.7 Neutrophils % 59.3 Lymphocytes % 14.7 D Monocytes % 7.2 Eosinophils % 18.1 H Basophils % 0.7 Sodium 137 Potassium 4.1 Chloride 109 H Carbon Dioxide 24 Anion Gap 4 L BUN 21 H Creatinine 0.8 Creat Clearance w eGFR > 60 Random Glucose 149 H D Calcium 10.0 Magnesium 1.8 Total Bilirubin 1.2 H AST 30 D ALT 41 H D Alkaline Phosphatase 105 H Total Protein 6.2 L Albumin 3.6 Active Medications Generic Name Dose Route Start Last Admin Trade Name Freq PRN Reason Stop Dose Admin Albuterol Sulfate 2 puff 01/07/17 02:25 Ventolin Hfa Inhaler - IH Q4H PRN WHEEZING Aspirin 325 mg 01/07/17 10:00 01/09/17 09:00 Ecotrin - PO 325 mg BID TARA Administration Heparin Sodium (Porcine) 5,000 unit 01/07/17 10:00 01/09/17 06:30 Heparin - SQ 5,000 unit TID TARA Administration Vancomycin HCl 1,000 mg in 250 mls @ 200 mls/hr 01/08/17 20:30 01/09/17 09:01 Vancomycin (Pre-Docked) IVPB 200 mls/hr Q12H TARA Administration Metoprolol Succinate 75 mg 01/07/17 10:00 01/09/17 09:01 Toprol Xl - PO 75 mg DAILY TARA Administration Multivitamins/Minerals/Vitamin C 1 tab 01/07/17 10:00 01/09/17 09:00 Tab-A-Vit - PO 1 tab DAILY TARA Administration Oxycodone/Acetaminophen 1 combo 01/06/17 21:36 01/09/17 06:29 Percocet 5/325 - PO 1 combo Q6H PRN Administration PAIN LEVEL 6-10 Pantoprazole Sodium 40 mg 01/07/17 10:00 01/09/17 09:00 Protonix - PO 40 mg DAILY TARA Administration Fluticasone/Salmeterol 1 puff 01/07/17 10:00 01/09/17 09:01 Advair 100mcg/50mcg - IH 1 puff BID TARA Administration Microbiology 01/06/17 10:50 Blood - Peripheral Venous Blood Culture - Preliminary NO GROWTH OBTAINED AFTER 72 HOURS, INCUBATION TO CONTINUE FOR 2 DAYS. 01/06/17 11:20 Blood - Peripheral Venous Blood Culture - Final Mr S Aureus 01/06/17 13:30 Face Gram Stain - Final 01/06/17 13:30 Face Wound Culture - Final Mr S Aureus ASSESSMENT/PLAN: CT facial bones without contrast: Focal area of skin thickening with skin defect and subcutaneous fat stranding/phlegmon overlying the ventral left mandibular body. No evidence of drainable collection, within the limitations of no IV contrast. ASSESSMENT/PLAN: 1) ID *Facial abscess - continue Vancomycin 1g bid (01/08-) levofloxacin (01/06 -01/07) and clindamycin (01/06-01/07) - blood cultures and wound cultures + for presumptive MRSA, follow up final - no leukocytosis, patient is afebrile - ID consulted and following, Dr Delgado 2) S/p right TKR 12/21/16 (Dr Desai, [facility]) - incision is well-healed,no redness or signs of infection noted - Protonix for GI prophylaxis - Percocet PRN - message left with Mayuri (law office receptionist) at Dr Desai's office today for a return phone call - physical therapy 3) cardiovasc Hypertension - continue Toprol XL 4) pulm h/o COPD - no acute excerbation at this time, continue albuterol and Advair inhalers 5) GI *GERD - Protonix 6) heme *Polycythemia vera - last phlebotomized 4-5 years ago but chronic itchiness is a symptom of PCV - Hct normal - needs outpatient follow up - LFTs -wnl F/E/N - Low Na diet DVT prophylaxis: Heparin SQ, OOB Physical therapy evaluation since s/p TKR Dispo: continues to require inpatient care. Code Status- Full code. Visit type - Emergency Visit Emergency Visit: Yes ED Registration Date: 01/06/17 Care time: The patient presented to the Emergency Department on the above date and was hospitalized for further evaluation of their emergent condition. - New Patient This patient is new to me today: Yes Date on this admission: 01/09/17 - Critical Care Critical Care patient: No - Discharge Referral Referred to [facility] Med P.C.: No
[2017-01-09 13:37] LABS: PLATELET COMMENTS RARE GIANT PLTS
[2017-01-09] MEDS ORDERED: ZOLPIDEM TARTRATE 5 MG TABLET PO PRN (13:56)
[2017-01-09] MEDS: diphenhydrAMINE HCL 25 MG CAPSULE (FP) PO PRN ×2 (15:13→21:20)
[2017-01-10] MEDS ORDERED: HEPARIN NA (PORCINE) 5,000 UNITS/ML 1ML VIAL ONE (06:25)
[2017-01-10] MEDS: HEPARIN NA (PORCINE) 5,000 UNITS/ML 1ML VIAL SQ SCH ×4 (06:37→21:47)
[2017-01-10] MEDS: VANCOMYCIN 1 GRAM (PRE-DOCKED) 1,000 MG/250 ML BAG IVPB SCH ×2 (08:23→20:08)
[2017-01-10 08:37] LABS: ANION GAP 7 (8-16); CALCIUM 9.3 mg/dl (8.4-10.2); CO2 25 mmol/L (22-28); CREATININE 0.9 mg/dl (0.6-1.3); GLUCOSE,RANDOM 120 mg/dl (74-106)
[2017-01-10 08:41] LABS: MCH 30.3 pg (25.7-33.7); MCHC 33.6 g/dl (32.0-35.9); MEAN CELL VOLUME 90.3 fl (80-96); MEAN PLT VOLUME 10.5 fl (7.5-11.1); PLATELET COUNT 233 K/MM3 (134-434); WHITE BLOOD COUNT 10.2 K/mm3 (4.0-10.8)
--- NOTE | 2017-01-10 09:00 | PN ---
Progress Note, Physician History of Present Illness: L facial pain and swelling resolved No wound drainage C/O post-operative R knee pain. No worse. Afebrile WBC WNL - Current Medication List Current Medications: Active Medications Albuterol Sulfate (Ventolin Hfa Inhaler -) 2 puff IH Q4H PRN PRN Reason: WHEEZING Aspirin (Asa -) 81 mg PO DAILY [facility] Diphenhydramine HCl (Benadryl -) 25 mg PO Q6H PRN PRN Reason: FOR ITCHING Last Admin: 01/09/17 21:20 Dose: 25 mg Heparin Sodium (Porcine) (Heparin -) 5,000 unit SQ TID [facility] Last Admin: 01/10/17 06:37 Dose: 5,000 unit Vancomycin HCl (Vancomycin (Pre-Docked)) 1,000 mg in 250 mls @ 200 mls/hr IVPB Q12H [facility] Last Admin: 01/10/17 08:23 Dose: 200 mls/hr Metoprolol Succinate (Toprol Xl -) 75 mg PO DAILY [facility] Last Admin: 01/09/17 09:01 Dose: 75 mg Multivitamins/Minerals/Vitamin C (Tab-A-Vit -) 1 tab PO DAILY [facility] Last Admin: 01/09/17 09:00 Dose: 1 tab Pantoprazole Sodium (Protonix -) 40 mg PO DAILY [facility] Last Admin: 01/09/17 09:00 Dose: 40 mg Fluticasone/Salmeterol (Advair 100mcg/50mcg -) 1 puff IH BID [facility] Last Admin: 01/09/17 21:22 Dose: 1 puff Tramadol HCl (Ultram -) 50 mg PO Q6H PRN PRN Reason: PAIN Zolpidem Tartrate (Ambien -) 5 mg PO HS PRN PRN Reason: INSOMNIA - Objective Vital Signs: Vital Signs Temperature 98.9 F 01/10/17 06:07 Pulse Rate 86 01/10/17 06:07 Respiratory Rate 18 01/10/17 06:07 Blood Pressure 149/82 01/10/17 06:07 O2 Sat by Pulse Oximetry (%) 96 01/10/17 06:07 Constitutional: Yes: No Distress Eyes: Yes: Conjunctiva Clear HENT: Yes: Other (L submanibular abscess nearly all resolved) Cardiovascular: Yes: Regular Rate and Rhythm, S1, S2 Respiratory: Yes: CTA Bilaterally Gastrointestinal: Yes: Normal Bowel Sounds, Soft. No: Tenderness Extremities: Yes: Other (R knee post-op swelling No erythema/ warmth) Edema: Yes Labs: CBC, BMP 01/10/17 07:00 01/10/17 07:00 Assessment/Plan L facial abscess- MRSA nearly all resolved + Blood c/s MRSA S/P R TKR Facial abscess nearly resolved Continue vancomycin. Check trough level Repeat BC no growth Echo pending Will need PICC, outpatient antibiotic therapy Contact precautions.
[2017-01-10] MEDS ORDERED: PICC LINE 8 ML FLUSH PROTOCOL IVPUSH PRN (09:01)
[2017-01-10] MEDS: FLUTICASONE/SALMETEROL 100 MCG/50 MCG DISKUS IH SCH ×2 (09:56→21:46)
[2017-01-10] MEDS: PANTOPRAZOLE 40 MG TABLET (FP) PO SCH (09:56)
[2017-01-10] MEDS: ASPIRIN 81 MG CHEWABLE TABLETS PO SCH (09:56)
[2017-01-10] MEDS: METOPROLOL SUCCINATE 50 MG TAB.SR.24H (FP) PO SCH (09:57)
[2017-01-10] MEDS: MULTIVITAMINS (DAILY MVI) TABLET (FP) PO SCH (09:57)
[2017-01-10] MEDS: traMADol HCL 50 MG TABLET PO PRN ×3 (09:57→22:09)
[2017-01-10 12:37] LABS: PLATELET ESTIMATE ADEQUATE
[2017-01-10] MEDS ORDERED: hydrOXYzine HCL 10 MG TABLET PO PRN (13:18)
--- NOTE | 2017-01-10 13:30 | PN ---
Physical Exam: SUBJECTIVE: Patient seen and examined,reports drainage from abscess, denies any tactile fevers, denies any tactile fevers. OBJECTIVE: Patient is a 66 year-old man with a PMH significant for HTN, COPD, GERD, polychythemia vera, and s/p right TKR 3 weeks ago. Admitted for facial abscess requiring IV antibiotics in the setting of recent TKR. Vital Signs Period Temp Pulse Resp BP Sys/Bear Pulse Ox Last 24 Hr 97.7 F-98.9 F 76-94 16-19 136-149/69-98 94-96 GENERAL: The patient is awake, alert, and fully oriented, in no acute distress. HEAD: Normal with no signs of trauma. EYES: PERRL, extraocular movements intact, sclera anicteric, conjunctiva clear. No ptosis. ENT: Ears normal, nares patent, oropharynx clear without exudates, moist mucous membranes. NECK: Trachea midline, full range of motion, supple. LUNGS: Breath sounds equal, clear to auscultation bilaterally, no wheezes, no crackles, no accessory muscle use. HEART: Regular rate and rhythm, S1, S2 without murmur, rub or gallop. ABDOMEN: Soft, nontender, nondistended, normoactive bowel sounds, no guarding, no rebound, no hepatosplenomegaly, no masses. EXTREMITIES: 2+ pulses, warm, well-perfused, no edema. RIGHT LOWER EXTREMITY: suture line to anterior knee, well approximated NEUROLOGICAL: Cranial nerves II through XII grossly intact. Normal speech, gait not observed. PSYCH: Normal mood, normal affect. SKIN: Warm, dry, normal turgor, no rashes or lesions noted, 1cm of erythema noted to submandible, no induration noted laboratory Results - last 24 hr 01/09/17 01/10/17 01/10/17 10:00 07:00 07:00 WBC 10.2 RBC 4.53 Hgb 13.8 Hct 40.9 MCV 90.3 MCH 30.3 MCHC 33.6 RDW 13.0 Plt Count 233 MPV 10.5 Neutrophils % No Result Required. Neutrophils % (Manual) 56.0 59.0 Band Neutrophils % 1.0 Lymphocytes % No Result Required. Lymphocytes % (Manual) 15.0 8.0 D Monocytes % (Manual) 12 H 7 Eosinophils % (Manual) 14.0 H 26.0 H D Basophils % (Manual) 2.0 Platelet Estimate Adequate Platelet Comment Rare giant plts Sodium Potassium Chloride Carbon Dioxide Anion Gap BUN Creatinine Random Glucose Calcium Vancomycin Pre-Dose 11.148 H D 01/10/17 07:00 WBC RBC Hgb Hct MCV MCH MCHC RDW Plt Count MPV Neutrophils % Neutrophils % (Manual) Band Neutrophils % Lymphocytes % Lymphocytes % (Manual) Monocytes % (Manual) Eosinophils % (Manual) Basophils % (Manual) Platelet Estimate Platelet Comment Sodium 136 Potassium 4.4 Chloride 104 Carbon Dioxide 25 Anion Gap 7 L BUN 18 Creatinine 0.9 Random Glucose 120 H Calcium 9.3 Vancomycin Pre-Dose Active Medications Generic Name Dose Route Start Last Admin Trade Name Freq PRN Reason Stop Dose Admin Albuterol Sulfate 2 puff 01/07/17 02:25 Ventolin Hfa Inhaler - IH Q4H PRN WHEEZING Aspirin 81 mg 01/10/17 10:00 01/10/17 09:56 Asa - PO 81 mg DAILY TARA Administration Heparin Sodium (Porcine) 5,000 unit 01/07/17 10:00 01/10/17 06:37 Heparin - SQ 5,000 unit TID TARA Administration Hydroxyzine HCl 10 mg 01/10/17 13:18 Atarax - PO Q6H PRN FOR ITCHING IV Flush 8 ml 01/10/17 09:01 Picc Line Flush IVPUSH PRN PRN Protocol Vancomycin HCl 1,000 mg in 250 mls @ 200 mls/hr 01/08/17 20:30 01/10/17 08:23 Vancomycin (Pre-Docked) IVPB 200 mls/hr Q12H TARA Administration Metoprolol Succinate 75 mg 01/07/17 10:00 01/10/17 09:57 Toprol Xl - PO 75 mg DAILY TARA Administration Multivitamins/Minerals/Vitamin C 1 tab 01/07/17 10:00 01/10/17 09:57 Tab-A-Vit - PO 1 tab DAILY TARA Administration Pantoprazole Sodium 40 mg 01/07/17 10:00 01/10/17 09:56 Protonix - PO 40 mg DAILY TARA Administration Fluticasone/Salmeterol 1 puff 01/07/17 10:00 01/10/17 09:56 Advair 100mcg/50mcg - IH 1 puff BID TARA Administration Tramadol HCl 50 mg 01/10/17 08:38 01/10/17 09:57 Ultram - PO 50 mg Q6H PRN Administration PAIN Zolpidem Tartrate 5 mg 01/09/17 13:56 Ambien - PO HS PRN INSOMNIA Microbiology 01/06/17 10:50 Blood - Peripheral Venous Blood Culture - Preliminary NO GROWTH OBTAINED AFTER 96 HOURS, INCUBATION TO CONTINUE FOR 1 DAYS. 01/09/17 09:32 Blood - Peripheral Venous Blood Culture - Preliminary NO GROWTH OBTAINED AFTER 24 HOURS, INCUBATION TO CONTINUE FOR 4 DAYS. 01/09/17 09:32 Blood - Peripheral Venous Blood Culture - Preliminary NO GROWTH OBTAINED AFTER 24 HOURS, INCUBATION TO CONTINUE FOR 4 DAYS. 01/06/17 11:20 Blood - Peripheral Venous Blood Culture - Final Mr S Aureus 01/06/17 13:30 Face Gram Stain - Final 01/06/17 13:30 Face Wound Culture - Final Mr S Aureus IMAGING CT facial bones without contrast: Focal area of skin thickening with skin defect and subcutaneous fat stranding/phlegmon overlying the ventral left mandibular body. No evidence of drainable collection, within the limitations of no IV contrast. ASSESSMENT/PLAN: 1) ID *Facial abscess - continue Vancomycin 1g bid (01/08-) levofloxacin (01/06 -01/07) and clindamycin (01/06-01/07). will need picc line for rat exterminator abx - blood cultures and wound cultures + MRSA, follow up final, pending final culture and echo - no leukocytosis, patient is afebrile - ID consulted and following, Dr Delgado 2) S/p right TKR 12/21/16 (Dr Desai, [facility]) - incision is well-healed,no redness or signs of infection noted - Protonix for GI prophylaxis - Percocet PRN - message left with Mayuri (sales receptionist) at Dr Desai's office today for a return phone call - physical therapy 3) cardiovasc Hypertension - continue Toprol XL 4) pulm h/o COPD - no acute excerbation at this time, continue albuterol and Advair inhalers 5) GI *GERD - Protonix 6) heme *Polycythemia vera - last phlebotomized 4-5 years ago but chronic itchiness is a symptom of PCV, start atarax - Hct wnl - needs outpatient follow up - LFTs -wnl F/E/N - Low Na diet DVT prophylaxis: Heparin SQ, OOB Physical therapy evaluation since s/p TKR Dispo: continues to require inpatient care. Code Status- Full code. Visit type - Emergency Visit Emergency Visit: Yes ED Registration Date: 01/06/17 Care time: The patient presented to the Emergency Department on the above date and was hospitalized for further evaluation of their emergent condition. - New Patient This patient is new to me today: No - Critical Care Critical Care patient: No - Discharge Referral Referred to [facility] Med P.C.: No
[2017-01-11] MEDS: HEPARIN NA (PORCINE) 5,000 UNITS/ML 1ML VIAL SQ SCH (06:38)
--- NOTE | 2017-01-11 10:13 | PN ---
Progress Note, Physician History of Present Illness: L facial pain and swelling resolved No wound drainage Still with c/o post-operative R knee pain. No worse. Afebrile WBC WNL Vanco T 11.1 Echocardiogram no vegetations - Current Medication List Current Medications: Active Medications Albuterol Sulfate (Ventolin Hfa Inhaler -) 2 puff IH Q4H PRN PRN Reason: WHEEZING Aspirin (Asa -) 81 mg PO DAILY [facility] Last Admin: 01/10/17 09:56 Dose: 81 mg Hydroxyzine HCl (Atarax -) 10 mg PO Q6H PRN PRN Reason: FOR ITCHING IV Flush (Picc Line Flush) 8 ml IVPUSH PRN PRN PRN Reason: Protocol Vancomycin HCl (Vancomycin (Pre-Docked)) 1,000 mg in 250 mls @ 200 mls/hr IVPB Q12H [facility] Last Admin: 01/10/17 20:08 Dose: 200 mls/hr Metoprolol Succinate (Toprol Xl -) 75 mg PO DAILY [facility] Last Admin: 01/10/17 09:57 Dose: 75 mg Multivitamins/Minerals/Vitamin C (Tab-A-Vit -) 1 tab PO DAILY [facility] Last Admin: 01/10/17 09:57 Dose: 1 tab Pantoprazole Sodium (Protonix -) 40 mg PO DAILY [facility] Last Admin: 01/10/17 09:56 Dose: 40 mg Fluticasone/Salmeterol (Advair 100mcg/50mcg -) 1 puff IH BID [facility] Last Admin: 01/10/17 21:46 Dose: 1 puff Tramadol HCl (Ultram -) 50 mg PO Q6H PRN PRN Reason: PAIN Last Admin: 01/10/17 22:09 Dose: 50 mg Zolpidem Tartrate (Ambien -) 5 mg PO HS PRN PRN Reason: INSOMNIA - Objective Vital Signs: Vital Signs Temperature 98.2 F 01/11/17 06:00 Pulse Rate 86 01/11/17 06:00 Respiratory Rate 19 01/11/17 06:00 Blood Pressure 155/85 01/11/17 06:00 O2 Sat by Pulse Oximetry (%) 99 01/10/17 20:19 Constitutional: Yes: No Distress Eyes: Yes: Conjunctiva Clear HENT: Yes: Other (L submandibular wound healed) Cardiovascular: Yes: Regular Rate and Rhythm, S1, S2 Respiratory: Yes: CTA Bilaterally Gastrointestinal: Yes: Normal Bowel Sounds, Soft. No: Tenderness Extremities: Yes: Other (R TKR wound well-healed No erythema + phlebitis L forearm) Labs: CBC, BMP 01/10/17 07:00 01/10/17 07:00 Assessment/Plan L facial abscess- MRSA resolved + Blood c/s MRSA S/P R TKR Facial abscess resolved Continue vancomycin. Repeat BC no growth Echo no vegetations For PICC, outpatient antibiotic therapy Contact precautions Will see in office as outpatient
--- NOTE | 2017-01-11 10:21 | DS ---
Physical Exam: SUBJECTIVE: Patient seen and examined, ambulatory at bedside, denies any tactile fevers, reports feeling well, denies any pain. OBJECTIVE:66 year-old man with a PMH significant for HTN, COPD, GERD, polychythemia vera (last phlebotomized 4-5 years ago), and s/p right TKR 3 weeks ago. Patient noticed a bump on the lower left side of his face two days ago. The bump developed multiple pustules and the patient squeezed a large amount of pus. He noticed a fibrinous material hanging from his face which he removed and it was a white perforated sac. Patient states he had two leftover levofloxacin from an earlier illness and he took one dose two days ago, and one dose yesterday, before coming to the hospital. ER course was notable for: (1) BP 160/98 (2) CT facial bones: focal area of skin thickening with skin defect and subq fat stranding/phlegmon overlying ventral left mandibular body Vital Signs Period Temp Pulse Resp BP Sys/Bear Pulse Ox Last 24 Hr 97.8 F-98.2 F 81-86 18-19 121-155/61-93 96-99 PHYSICAL EXAM GENERAL: The patient is awake, alert, and fully oriented, in no acute distress. HEAD: Normal with no signs of trauma. EYES: PERRL, extraocular movements intact, sclera anicteric, conjunctiva clear. No ptosis. ENT: Ears normal, nares patent, oropharynx clear without exudates, moist mucous membranes. NECK: Trachea midline, full range of motion, supple. LUNGS: Breath sounds equal, clear to auscultation bilaterally, no wheezes, no crackles, no accessory muscle use. HEART: Regular rate and rhythm, S1, S2 without murmur, rub or gallop. ABDOMEN: Soft, nontender, nondistended, normoactive bowel sounds, no guarding, no rebound, no hepatosplenomegaly, no masses. EXTREMITIES: 2+ pulses, warm, well-perfused, no edema. RIGHT LOWER EXTREMITY: suture line to anterior knee, well approximated NEUROLOGICAL: Cranial nerves II through XII grossly intact. Normal speech, gait not observed. PSYCH: Normal mood, normal affect. SKIN: Warm, dry, normal turgor, no rashes or lesions noted, 1cm of erythema noted to submandible, no induration noted LABS Laboratory Results - last 24 hr 01/10/17 01/10/17 07:00 07:00 Neutrophils % (Manual) 59.0 Lymphocytes % (Manual) 8.0 D Monocytes % (Manual) 7 Eosinophils % (Manual) 26.0 H D Platelet Estimate Adequate Vancomycin Pre-Dose 11.148 H D CBC WBC 10.2 K/mm3 (4.0-10.8) 01/10/17 07:00 RBC 4.53 M/mm3 (4.00-5.60) 01/10/17 07:00 Hgb 13.8 GM/dl (11.7-16.9) 01/10/17 07:00 Hct 40.9 % (35.4-49) 01/10/17 07:00 MCV 90.3 fl (80-96) 01/10/17 07:00 MCH 30.3 pg (25.7-33.7) 01/10/17 07:00 MCHC 33.6 g/dl (32.0-35.9) 01/10/17 07:00 RDW 13.0 % (11.9-15.9) 01/10/17 07:00 Plt Count 233 K/MM3 (134-434) 01/10/17 07:00 MPV 10.5 fl (7.5-11.1) 01/10/17 07:00 Neutrophils % No Result Required. 01/10/17 07:00 Neutrophils % (Manual) 59.0 % (42.8-82.8) 01/10/17 07:00 Band Neutrophils % 1.0 % (0-10) 01/09/17 10:00 Lymphocytes % No Result Required. 01/10/17 07:00 Lymphocytes % (Manual) 8.0 % (8-40) D 01/10/17 07:00 Monocytes % Risk Control Analyst 01/09/17 10:00 Monocytes % (Manual) 7 % (3.8-10.2) 01/10/17 07:00 Eosinophils % Risk Control Analyst 01/09/17 10:00 Eosinophils % (Manual) 26.0 % (0-4.5) H D 01/10/17 07:00 Basophils % Risk Control Analyst 01/09/17 10:00 Basophils % (Manual) 2.0 % (0-2.0) 01/09/17 10:00 Manual Slide Review No Result Required. 01/07/17 07:41 Platelet Estimate Adequate 01/10/17 07:00 Platelet Comment Rare giant plts 01/09/17 10:00 ESR 35 mm/hr (0-20) H 01/06/17 10:50 CMP Sodium 136 mmol/L (136-145) 01/10/17 07:00 Potassium 4.4 mmol/L (3.5-5.1) 01/10/17 07:00 Chloride 104 mmol/L (98-107) 01/10/17 07:00 Carbon Dioxide 25 mmol/L (22-28) 01/10/17 07:00 Anion Gap 7 (8-16) L 01/10/17 07:00 BUN 18 mg/dl (7-18) 01/10/17 07:00 Creatinine 0.9 mg/dl (0.6-1.3) 01/10/17 07:00 Creat Clearance w eGFR > 60 (>60) 01/09/17 10:00 Random Glucose 120 mg/dl (74-106) H 01/10/17 07:00 Lactic Acid 1.5 mmol/L (0.4-2.0) 01/06/17 10:50 Calcium 9.3 mg/dl (8.4-10.2) 01/10/17 07:00 Magnesium 1.8 mg/dL (1.8-2.4) 01/09/17 10:00 Total Bilirubin 1.2 mg/dl (0.2-1.0) H 01/09/17 10:00 AST 30 U/L (10-42) D 01/09/17 10:00 ALT 41 U/L (10-40) H D 01/09/17 10:00 Alkaline Phosphatase 105 U/L (32-92) H 01/09/17 10:00 C-Reactive Protein 3.9 MG/DL (0.00-0.3) H 01/06/17 10:50 Total Protein 6.2 g/dl (6.4-8.3) L 01/09/17 10:00 Albumin 3.6 g/dl (3.5-5.0) 01/09/17 10:00 Microbiology 01/09/17 09:32 Blood - Peripheral Venous Blood Culture - Preliminary NO GROWTH OBTAINED AFTER 48 HOURS, INCUBATION TO CONTINUE FOR 3 DAYS. 01/09/17 09:32 Blood - Peripheral Venous Blood Culture - Preliminary NO GROWTH OBTAINED AFTER 48 HOURS, INCUBATION TO CONTINUE FOR 3 DAYS. 01/06/17 10:50 Blood - Peripheral Venous Blood Culture - Preliminary NO GROWTH OBTAINED AFTER 96 HOURS, INCUBATION TO CONTINUE FOR 1 DAYS. 01/06/17 11:20 Blood - Peripheral Venous Blood Culture - Final Mr S Aureus 01/06/17 13:30 Face Gram Stain - Final 01/06/17 13:30 Face Wound Culture - Final Mr S Aureus IMAGING CT facial bones without contrast: Focal area of skin thickening with skin defect and subcutaneous fat stranding/phlegmon overlying the ventral left mandibular body. No evidence of drainable collection, within the limitations of no IV contrast. HOSPITAL COURSE: Patient was admitted from the emergency department for a Facial abscess and MRSA bactermia. She was treated with vancomycin 1g bid (01/08-) levofloxacin ( 01/06 -01/07) and clindamycin (01/06-01/07). PICC line was placed on 01/11/17 for termite exterminator antibiotics. Repeat blood cultures was noted to be negative. No leukocytosis is noted, patient remained afebrile throughout admission. no vegation was noted on echocardiogram, ID physician, Dr Delgado was consulted and following. Patient is S/p right TKR 12/21/16 (Dr Desai, [facility]), incision is well-healed,no redness or signs of infection noted. patient participated in daily physical therapy throughout admission. Case discussed with Dr Desai and made aware mrsa bacteremia, Dr Desai agrees with plan and patient will required outpatient follow up. Patient has a past medical history of hypertension, toprol continued throughout admission, blood pressure at goal. Patient has a past medical history of copd, no acute excerbation was noted, albuterol and Advair inhalers was continued. PLAN - discharge home with IV antibiotics vancomycin bid - follow up with Dr Delgado, ID within 2 weeks - follow up with Dr Desai, orthopedist within 2 week Date of Admission:01/06/17 Date of Discharge: 01/11/17 Minutes to complete discharge: 45 Discharge Summary Reason For Visit: CELLULITIS OF FACE Current Active Problems Facial cellulitis (Acute) Phlegmon (Acute) Total knee replacement status (Acute) Condition: Stable - Instructions Diet, Activity, Other Instructions: resume all medications as prescribed continue vancomycin twice a day for the next 4 weeks repeat cbc, bmp, vanomycin through within 7 days please follow up with Dr Delgado, infectious disease physician within 2 weeks please follow up with Dr Desai, orthopedist within 2 weeks if any new or persistent symptoms develop please return to the emergency department Referrals: Tone Prakash MD [Primary Care Provider] - Morgan Desai MD [Non Staff, Medical] - 2 Weeks Josh Delgado MD [Staff Physician] - 2 Weeks Disposition: [facility]NS/HOME HEALTH CARE - Home Medications Comprehensive Discharge Medication List: Ambulatory Orders Albuterol Sulfate Inhaler - [Ventolin HFA Inhaler -] 2 inh PO Q4H PRN 08/02/14 Metoprolol Succinate [Toprol Xl] 75 mg PO DAILY 08/02/14 Multivitamins [Multivit ([facility] Formulary)] 1 tab PO DAILY 08/02/14 Naproxen [Naprosyn -] 500 mg PO PRN PRN 08/02/14 Omeprazole [Prilosec] 20 mg PO DAILY 08/02/14 Salmeterol/Fluticasone [Advair 250Mcg/50Mcg -] 1 inh PO DAILY 09/19/14 Aspirin Coated [Ecotrin -] 325 mg PO DAILY 01/06/17 Oxycodone HCl/Acetaminophen [Percocet 10-325 mg Tablet] 1 each PO ASDIR PRN This patient is new to me today: No Emergency Visit: Yes ED Registration Date: 01/06/17 Care time: The patient presented to the Emergency Department on the above date and was hospitalized for further evaluation of their emergent condition. Critical Care patient: No - Discharge Referral Referred to [facility] Med P.C.: No
[2017-01-11] MEDS: VANCOMYCIN 1 GRAM (PRE-DOCKED) 1,000 MG/250 ML BAG IVPB SCH (11:28)
[2017-01-11] MEDS: MULTIVITAMINS (DAILY MVI) TABLET (FP) PO SCH (11:31)
[2017-01-11] MEDS: ASPIRIN 81 MG CHEWABLE TABLETS PO SCH (11:33)
[2017-01-11] MEDS: PANTOPRAZOLE 40 MG TABLET (FP) PO SCH (11:33)
[2017-01-11] MEDS: FLUTICASONE/SALMETEROL 100 MCG/50 MCG DISKUS IH SCH (11:36)
[2017-01-11] MEDS: METOPROLOL SUCCINATE 50 MG TAB.SR.24H (FP) PO SCH (11:37)
[2017-01-11 14:17] VITALS: BP 139/76; PULSE 84; TEMP 97.9
== END 2017-01-11 14:27 | disposition home health service (06) | DRG 603 ==
LOC: FER 10:38 → SUPCPDRO 10:38 → FM/S 14:37
PROVIDERS: ADMIT Internal Medicine; ATTEND Nurse Practitioner Family
PROC: 02HV33Z Insertion of Infusion Device into Superior Vena Cava, Percutaneous Approach (ICD-10-PCS; principal; 2017-01-11)
DX: L02.01 Cutaneous abscess of face (principal); R78.81 Bacteremia; I10 Essential (primary) hypertension; J44.9 Chronic obstructive pulmonary disease, unspecified; Z96.651 Presence of right artificial knee joint; K21.9 Gastro-esophageal reflux disease without esophagitis; D45 Polycythemia vera; B95.62 Methicillin resistant Staphylococcus aureus infection as the cause of diseases classified elsewhere
CPT/HCPCS: 36415; 36569; 70486-TC; 77001-TC; 80048; 80053; 83605; 83735; 85025; 85027; 85651; 86140; 87040; 87070; 87186; 87205; 93306-TC; 99285-25; C1751; G0480; J1644

== ENCOUNTER 2021-09-20 16:32 | Emergency (ER) | payer OTHER ==
[2021-09-20] MEDS ORDERED: DIPHTH,PERTUSS(ACELL),TET 0.5 ML DISP.SYRIN IM ONE ×2 (16:55→20:35)
[2021-09-20 17:04] VITALS: BP 141/95; PULSE 90; RESP 20; TEMP 97; BMI 27.8
[2021-09-20] MEDS ORDERED: ACETAMINOPHEN 500 MG TABLET (FP) PO ONE (18:10)
[2021-09-20] MEDS ORDERED: CLINDAMYCIN HCL 300 MG CAPSULE PO ONE (19:01)
[2021-09-20] MEDS ORDERED: ACETAMINOPHEN 500 MG TABLET (FP) ONE (20:34)
[2021-09-20] MEDS ORDERED: CLINDAMYCIN HCL 150 MG CAPSULE (FP) ONE (20:34)
[2021-09-20] MEDS ORDERED: ACETAMINOPHEN 325 MG TABLET (FP) ONE (20:36)
== END 2021-09-20 20:49 | disposition home or self-care (01) ==
LOC: FER 16:32
PROC: 3E0234Z Introduction of Serum, Toxoid and Vaccine into Muscle, Percutaneous Approach (ICD-10-PCS; principal; 2021-09-20)
DX: S61.411A Laceration without foreign body of right hand, initial encounter (principal); W01.0XXA Fall on same level from slipping, tripping and stumbling without subsequent striking against object, initial encounter
CPT/HCPCS: 70450-TC; 72125-TC; 73110-TC-RT-FY; 73130-TC-RT-FY; 73140-TC-RT-FY; 90471; 90715; 99284-25

== ENCOUNTER 2021-09-22 15:59 | Emergency (ER) | payer OTHER ==
[2021-09-22 16:58] VITALS: BP 118/74; PULSE 79; RESP 18; TEMP 98.5; BMI 31.9
== END 2021-09-22 16:48 | disposition home or self-care (01) ==
LOC: FER 15:59
DX: S20.211A Contusion of right front wall of thorax, initial encounter (principal)
CPT/HCPCS: 99283-25

== ENCOUNTER 2022-02-04 04:34 | Day surgery (SDC) | payer OTHER ==
[2022-02-04 09:27] VITALS: BMI 30.4
[2022-02-04 10:32] VITALS: TEMP 97.6
[2022-02-04 11:08] VITALS: BP 127/73; PULSE 62; RESP 21
== END 2022-02-04 11:20 | disposition home or self-care (01) ==
LOC: JASU-ENDO 04:34
PROVIDERS: ATTEND Internal Medicine Gastroenterology
PROC: 0DBL8ZX Excision of Transverse Colon, Via Natural or Artificial Opening Endoscopic, Diagnostic (ICD-10-PCS; 2022-02-04)
PROC: 0DBN8ZX Excision of Sigmoid Colon, Via Natural or Artificial Opening Endoscopic, Diagnostic (ICD-10-PCS; 2022-02-04)
PROC: 0DBB8ZX Excision of Ileum, Via Natural or Artificial Opening Endoscopic, Diagnostic (ICD-10-PCS; 2022-02-04)
PROC: 0DBK8ZX Excision of Ascending Colon, Via Natural or Artificial Opening Endoscopic, Diagnostic (ICD-10-PCS; principal; 2022-02-04 10:00)
DX: Z12.11 Encounter for screening for malignant neoplasm of colon (principal); K51.90 Ulcerative colitis, unspecified, without complications; Z86.010 Personal history of colon polyps; D12.2 Benign neoplasm of ascending colon; D12.5 Benign neoplasm of sigmoid colon; D12.3 Benign neoplasm of transverse colon; K64.8 Other hemorrhoids
CPT/HCPCS: 88305-TC

== ENCOUNTER 2023-04-17 18:23 | Inpatient (IN) | payer OTHER ==
[2023-04-17 18:35] VITALS: BMI 29.2
[2023-04-17] MEDS ORDERED: VANCOMYCIN/WATER 1250 MG 1,250 MG/250 ML BAG IVPB ONE (20:09)
[2023-04-17 20:34] LABS: BASO % 0.7 % (0-2.0); EOS % 2.1 % (0-4.5); HEMATOCRIT 41.6 % (35.4-49); HEMOGLOBIN 13.9 GM/dL (11.7-16.9); LYMPH % 16.2 % (8-40); MCH 30.9 pg (25.7-33.7); MCHC 33.4 g/dl (32.0-35.9); MEAN CELL VOLUME 92.3 fl (80-96); MEAN PLT VOLUME 9.1 fl (7.5-11.1); MONO % 9.5 % (3.8-10.2); NEUT % 71.5 % (42.8-82.8); PLATELET COUNT 245 10^3/uL (134-434); RDW 14.7 % (11.9-15.9); WHITE BLOOD COUNT 17.5 K/mm3 (4.0-10.0)
[2023-04-17 20:38] LABS: INR 0.97 (0.83-1.09); PROTHROMBIN TIME (PATIENT) 11.3 SEC (9.7-13.0)
[2023-04-17 20:41] LABS: ACTIVATED PTT 23.6 SECONDS (25.2-36.5)
[2023-04-17] MEDS: VANCOMYCIN/WATER 1250 MG 1,250 MG/250 ML BAG IVPB ONE (20:51)
[2023-04-17 21:19] LABS: BILIRUBIN,TOTAL 0.5 mg/dL (0.2-1); TOT PROT 6.4 g/dl (6.4-8.2)
[2023-04-17] MEDS: SODIUM CHLORIDE 0.9% 500 ML INFUS.BAG IV ONE (22:42)
[2023-04-17 23:08] LABS: ERYTHROCYTE SEDIMENTATION RATE 13 mm/hr (0-20)
[2023-04-18] MEDS ORDERED: VANCOMYCIN 1,000 MG in DEXTROSE 5%-WATER - 250 ML IVPB SCH ×4 (02:15→15:00)
[2023-04-18] MEDS ORDERED: VANCOMYCIN 1 GRAM (PRE-DOCKED) 1,000 MG/250 ML BAG IVPB ONE (02:42)
[2023-04-18] MEDS ORDERED: ALBUTEROL SO4 2.5/IPRATROPIUM 0.5 INH SOL 3 ML VIAL.NEB. NEB PRN ×2 (02:54→16:37)
[2023-04-18] MEDS: VANCOMYCIN/WATER FOR INJ (PEG) 1,000 MG/200 ML BAG IVPB ONE ×2 (03:05)
[2023-04-18] MEDS ORDERED: SACUBITRIL/VALSARTAN 49 MG-51 MG TABLET PO SCH ×2 (03:25→10:00)
[2023-04-18] MEDS: SACUBITRIL/VALSARTAN 49 MG-51 MG TABLET PO ONE (03:38)
[2023-04-18] MEDS: URSODIOL 300 MG CAPSULE PO ONE (03:41)
[2023-04-18 06:54] LABS: HEMATOCRIT 40.9 % (35.4-49); HEMOGLOBIN 13.5 GM/dL (11.7-16.9); MCH 30.8 pg (25.7-33.7); MCHC 33.1 g/dl (32.0-35.9); MEAN PLT VOLUME 9.7 fl (7.5-11.1); PLATELET COUNT 208 10^3/uL (134-434); RBC 4.39 M/mm3 (4.00-5.60); RDW 14.6 % (11.9-15.9); WHITE BLOOD COUNT 15.1 K/mm3 (4.0-10.0)
[2023-04-18 06:56] LABS: POTASSIUM 4.5 mmol/L (3.5-5.1)
[2023-04-18 07:06] LABS: CALCIUM 8.4 mg/dL (8.5-10.1)
[2023-04-18 07:07] LABS: ALBUMIN 2.7 g/dl (3.4-5.0); BLOOD UREA NITROGEN 24.3 mg/dL (7-18)
[2023-04-18 07:12] LABS: BILIRUBIN,TOTAL 0.7 mg/dL (0.2-1); TOT PROT 5.7 g/dl (6.4-8.2)
[2023-04-18] MEDS: SPIRONOLACTONE 25 MG TABLET PO SCH (09:29)
[2023-04-18] MEDS: PANTOPRAZOLE 20 MG TABLET PO SCH ×2 (09:29→21:31)
[2023-04-18] MEDS: TAMSULOSIN HCL 0.4 MG CAP PO SCH (09:29)
[2023-04-18] MEDS: metoPROLOL SUCCINATE 25 MG TAB.SR.24H (FP) PO SCH (09:29)
[2023-04-18] MEDS: ASPIRIN COATED 81 MG TABLET.EC PO SCH (09:29)
[2023-04-18] MEDS ORDERED: FUROSEMIDE 40 MG TABLET (FP) PO SCH (10:00)
[2023-04-18] MEDS ORDERED: URSODIOL 500 MG PO SCH (10:00)
[2023-04-18] MEDS ORDERED: LIDOCAINE HCL 1%, 10 MG/ML (20ML VIAL) ONE (13:53)
[2023-04-18] MEDS ORDERED: BUPIVACAINE HCL/PF 0.5% (5MG/ML) 10 ML VIAL ONE (13:53)
[2023-04-18] MEDS ORDERED: ONDANSETRON 4 MG/2 ML VIAL IVPUSH PRN ×2 (14:21→16:37)
[2023-04-18] MEDS ORDERED: LIDOCAINE HCL/PF 2% SDV 5ML VIAL ONE (14:23)
[2023-04-18] MEDS ORDERED: MIDAZOLAM HCL 2 MG/2 ML SINGLE DOSE VIAL ONE (14:23)
[2023-04-18] MEDS ORDERED: PROPOFOL 20 ML ONE (14:24)
[2023-04-18] MEDS ORDERED: DEXAMETHASONE SOD PHOSPHATE 4 MG/1 ML VIAL ONE (14:51)
[2023-04-18] MEDS ORDERED: SUCCINYLCHOLINE CHLORIDE 200 MG/10 ML SYRINGE ONE (14:59)
[2023-04-18] MEDS ORDERED: VANCOMYCIN/WATER FOR INJ (PEG) 1,000 MG/200 ML BAG IVPB SCH (15:00)
[2023-04-18] MEDS ORDERED: VANCOMYCIN 1,000 MG VIAL (RESTRICTED TO ID ONLY) ONE (15:12)
[2023-04-18] MEDS: VANCOMYCIN 1,000 MG VIAL (RESTRICTED TO ID ONLY) IVPB ONE (15:16)
[2023-04-18] MEDS: HYDROGEN PEROXIDE 473 ML PO ONE (15:24)
[2023-04-18] MEDS: LACTATED RINGERS SOLUTION 1,000 ML IV SCH ×2 (16:45→21:31)
[2023-04-18] MEDS: VANCOMYCIN/WATER 1250 MG 1,250 MG/250 ML BAG IVPB SCH (16:46)
[2023-04-18] MEDS: ATORVASTATIN CA 20 MG TABLET (FP) PO SCH (21:31)
[2023-04-18] MEDS ORDERED: ATORVASTATIN CA 20 MG TABLET (FP) PO SCH (22:00)
[2023-04-18] MEDS ORDERED: ALBUTEROL SO4 0.083% IH SOL 2.5 MG/3 ML VIAL.NEB. NEB PRN (22:26)
[2023-04-18] MEDS: SACUBITRIL/VALSARTAN 49 MG-51 MG TABLET PO SCH (23:48)
[2023-04-19] MEDS: VANCOMYCIN/WATER 1250 MG 1,250 MG/250 ML BAG IVPB SCH (03:03)
[2023-04-19] MEDS: BUDESONIDE/FORMETEROL FUMARATE 80/4.5 mcg INHALER IH SCH (03:18)
[2023-04-19] MEDS: URSODIOL 500 MG PO SCH (03:19)
[2023-04-19] MEDS: TAMSULOSIN HCL 0.4 MG CAP PO SCH (08:12)
[2023-04-19 08:39] LABS: BASO % 0.4 % (0-2.0); EOS % 0.4 % (0-4.5); HEMATOCRIT 39.5 % (35.4-49); HEMOGLOBIN 12.9 GM/dL (11.7-16.9); LYMPH % 6.5 % (8-40); MCH 30.5 pg (25.7-33.7); MCHC 32.8 g/dl (32.0-35.9); MEAN CELL VOLUME 93.1 fl (80-96); MEAN PLT VOLUME 9.7 fl (7.5-11.1); MONO % 6.8 % (3.8-10.2); NEUT % 85.9 % (42.8-82.8); PLATELET COUNT 197 10^3/uL (134-434); RBC 4.24 M/mm3 (4.00-5.60); RDW 14.7 % (11.9-15.9); WHITE BLOOD COUNT 13.6 K/mm3 (4.0-10.0)
[2023-04-19] MEDS: metoPROLOL SUCCINATE 25 MG TAB.SR.24H (FP) PO SCH (09:03)
[2023-04-19] MEDS: FUROSEMIDE 40 MG TABLET (FP) PO SCH (09:04)
[2023-04-19] MEDS: ASPIRIN COATED 81 MG TABLET.EC PO SCH (09:04)
[2023-04-19 10:00] LABS: POTASSIUM 4.6 mmol/L (3.5-5.1)
[2023-04-19] MEDS ORDERED: FUROSEMIDE 40 MG TABLET (FP) PO SCH (10:00)
[2023-04-19 10:05] LABS: ALBUMIN 2.8 g/dl (3.4-5.0); BLOOD UREA NITROGEN 19.6 mg/dL (7-18); MAGNESIUM 1.8 mg/dL (1.8-2.4)
[2023-04-19 10:08] LABS: CREATININE 0.8 mg/dL (0.55-1.3)
[2023-04-19 10:09] LABS: TOT PROT 5.7 g/dl (6.4-8.2)
[2023-04-19 10:10] LABS: BILIRUBIN,TOTAL 0.8 mg/dL (0.2-1)
[2023-04-20] MEDS: ACETAMINOPHEN 325 MG TABLET (FP) PO PRN (01:21)
[2023-04-20 08:11] LABS: HEMATOCRIT 35.8 % (35.4-49); HEMOGLOBIN 12.6 GM/dL (11.7-16.9); MCH 32.2 pg (25.7-33.7); MCHC 35.1 g/dl (32.0-35.9); MEAN CELL VOLUME 91.8 fl (80-96); MEAN PLT VOLUME 9.8 fl (7.5-11.1); PLATELET COUNT 188 10^3/uL (134-434); RDW 15.1 % (11.9-15.9); WHITE BLOOD COUNT 9.4 K/mm3 (4.0-10.0)
[2023-04-20 08:45] LABS: POTASSIUM 4.2 mmol/L (3.5-5.1)
[2023-04-20 08:52] LABS: ALBUMIN 2.3 g/dl (3.4-5.0); BLOOD UREA NITROGEN 23.4 mg/dL (7-18)
[2023-04-20 08:54] LABS: CALCIUM 8.6 mg/dL (8.5-10.1)
[2023-04-20 08:55] LABS: CREATININE 0.9 mg/dL (0.55-1.3); MAGNESIUM 1.8 mg/dL (1.8-2.4)
[2023-04-20 08:56] LABS: BILIRUBIN,TOTAL 0.4 mg/dL (0.2-1)
[2023-04-20 09:57] LABS: ANISOCYTOSIS 1+; MACROCYTOSIS 0
[2023-04-20] MEDS: SPIRONOLACTONE 25 MG TABLET PO SCH (10:03)
[2023-04-20] MEDS: ENOXAPARIN NA (PORCINE) 40 MG/0.4 ML DISP.SYRIN SQ SCH (10:04)
[2023-04-20] MEDS: VANCOMYCIN/WATER 1250 MG 1,250 MG/250 ML BAG IVPB SCH ×2 (10:09→21:30)
[2023-04-20] MEDS ORDERED: ALBUTEROL SO4 2.5/IPRATROPIUM 0.5 INH SOL 3 ML VIAL.NEB. NEB PRN (16:45)
[2023-04-20] MEDS: URSODIOL 500 MG PO SCH (16:55)
[2023-04-20] MEDS: PANTOPRAZOLE 20 MG TABLET PO SCH (21:30)
[2023-04-20] MEDS: SACUBITRIL/VALSARTAN 49 MG-51 MG TABLET PO SCH (21:30)
[2023-04-20] MEDS: ATORVASTATIN CA 20 MG TABLET (FP) PO SCH (21:30)
[2023-04-20] MEDS ORDERED: URSODIOL 500 MG PO SCH (22:00)
[2023-04-20] MEDS: BUDESONIDE/FORMETEROL FUMARATE 80/4.5 mcg INHALER IH SCH (23:02)
[2023-04-21 06:24] VITALS: TEMP 98.6
[2023-04-21] MEDS: ACETAMINOPHEN 325 MG TABLET (FP) PO PRN (06:59)
[2023-04-21 08:29] LABS: EOS % 13.3 % (0-4.5); HEMATOCRIT 42.2 % (35.4-49); HEMOGLOBIN 14.4 GM/dL (11.7-16.9); LYMPH % 13.9 % (8-40); MCH 31.5 pg (25.7-33.7); MCHC 34.3 g/dl (32.0-35.9); MEAN CELL VOLUME 91.9 fl (80-96); MONO % 6.6 % (3.8-10.2); NEUT % 66.2 % (42.8-82.8); PLATELET COUNT 221 10^3/uL (134-434); RBC 4.59 M/mm3 (4.00-5.60); RDW 14.9 % (11.9-15.9); WHITE BLOOD COUNT 10.7 K/mm3 (4.0-10.0)
[2023-04-21 08:49] LABS: POTASSIUM 4.5 mmol/L (3.5-5.1)
[2023-04-21 08:52] LABS: CALCIUM 9.2 mg/dL (8.5-10.1)
[2023-04-21 08:53] LABS: BLOOD UREA NITROGEN 21.6 mg/dL (7-18); MAGNESIUM 1.9 mg/dL (1.8-2.4)
[2023-04-21 08:56] LABS: CREATININE 0.9 mg/dL (0.55-1.3)
[2023-04-21 08:57] LABS: BILIRUBIN,TOTAL 0.7 mg/dL (0.2-1)
[2023-04-21 08:59] LABS: ALBUMIN 2.9 g/dl (3.4-5.0)
[2023-04-21] MEDS: FUROSEMIDE 40 MG TABLET (FP) PO SCH (09:10)
[2023-04-21] MEDS: TAMSULOSIN HCL 0.4 MG CAP PO SCH (09:10)
[2023-04-21] MEDS: metoPROLOL SUCCINATE 25 MG TAB.SR.24H (FP) PO SCH (09:10)
[2023-04-21] MEDS: ENOXAPARIN NA (PORCINE) 40 MG/0.4 ML DISP.SYRIN SQ SCH (09:10)
[2023-04-21] MEDS: ASPIRIN COATED 81 MG TABLET.EC PO SCH (09:10)
[2023-04-21 12:35] VITALS: BP 117/77; PULSE 86; RESP 18
[2023-04-22] MEDS ORDERED: SPIRONOLACTONE 25 MG TABLET PO SCH (10:00)
== END 2023-04-21 15:07 | disposition home or self-care (01) | DRG 603 ==
LOC: JER 18:23 → JERBED 23:53 → OBSVTOIN 04-18 14:32 → J5S 04-18 19:48 → J7W 04-19 21:44
PROVIDERS: ADMIT Internal Medicine; ATTEND Internal Medicine
PROC: 0J910ZX Drainage of Face Subcutaneous Tissue and Fascia, Open Approach, Diagnostic (ICD-10-PCS; principal; 2023-04-18 13:30)
DX: L02.01 Cutaneous abscess of face (principal); I50.22 Chronic systolic (congestive) heart failure; L03.211 Cellulitis of face; K21.9 Gastro-esophageal reflux disease without esophagitis; N40.0 Benign prostatic hyperplasia without lower urinary tract symptoms; J44.9 Chronic obstructive pulmonary disease, unspecified; E78.5 Hyperlipidemia, unspecified; D45 Polycythemia vera; E86.0 Dehydration; B95.62 Methicillin resistant Staphylococcus aureus infection as the cause of diseases classified elsewhere; I11.0 Hypertensive heart disease with heart failure; Z88.0 Allergy status to penicillin
CPT/HCPCS: 36415; 70491-TC; 80053; 83735; 85025; 85027; 85610; 85651; 85730; 86140; 86850; 86900; 86901; 87040; 87070; 87081; 87186; 87205; 93005; 93010; 94760; 99285-25; G0378; G0480; Q9967

== ENCOUNTER 2024-02-17 05:52 | Inpatient (IN) | payer OTHER ==
[2024-02-17] MEDS ORDERED: ACETAMINOPHEN INJECTION 100 ML ONE ×2 (08:46→16:57)
[2024-02-17] MEDS ORDERED: FAMOTIDINE 20 MG/50 ML IVPB 20 MG/50 ML MG IVPB ONE (08:47)
[2024-02-17] MEDS: FAMOTIDINE 20 MG/50 ML IVPB 20 MG/50 ML MG IVPB ONE (08:57)
[2024-02-17] MEDS: ACETAMINOPHEN 1000 MG/100 ML BAG IVPB ONE ×2 (08:57→17:00)
[2024-02-17] MEDS: LACTATED RINGERS SOLUTION 1,000 ML/1,000 ML INFUS.BAG IV SCH ×2 (08:57→11:22)
[2024-02-17 08:58] LABS: BASO % 0.4 % (0-2.0); EOS % 7.8 % (0-4.5); HEMATOCRIT 37.5 % (35.4-49); MCH 31.9 pg (25.7-33.7); MCHC 34.7 g/dl (32.0-35.9); MEAN CELL VOLUME 91.9 fl (80-96); MEAN PLT VOLUME 9.3 fl (7.5-11.1); MONO % 10.4 % (3.8-10.2); NEUT % 74.4 % (42.8-82.8); PLATELET COUNT 210 10^3/uL (134-434); RBC 4.08 M/mm3 (4.00-5.60); RDW 15.1 % (11.9-15.9); WHITE BLOOD COUNT 10.8 K/mm3 (4.0-10.0)
[2024-02-17 09:03] LABS: INR 1.09 (0.83-1.09); PROTHROMBIN TIME (PATIENT) 12.3 SEC (9.7-13.0)
[2024-02-17 09:05] LABS: ACTIVATED PTT 28.1 SECONDS (25.2-36.5)
[2024-02-17 09:09] LABS: POTASSIUM 3.2 mmol/L (3.5-5.1)
[2024-02-17 09:11] LABS: CALCIUM 8.6 mg/dL (8.5-10.1)
[2024-02-17 09:12] LABS: ALBUMIN 2.8 g/dl (3.4-5.0); BLOOD UREA NITROGEN 6.2 mg/dL (7-18); MAGNESIUM 1.2 mg/dL (1.8-2.4)
[2024-02-17 09:15] LABS: CREATININE 0.8 mg/dL (0.55-1.3); PHOSPHOROUS 2.9 mg/dL (2.5-4.9)
[2024-02-17 09:17] LABS: TOT PROT 6.1 g/dl (6.4-8.2)
[2024-02-17] MEDS ORDERED: MAGNESIUM SULFATE IN WATER 2 GM/50 ML IVPB IVPB ONE (11:10)
[2024-02-17] MEDS ORDERED: POTASSIUM CHLORIDE ORAL LIQUID 20 MEQ/15 ML ONE (11:11)
[2024-02-17] MEDS: POTASSIUM CHLORIDE ORAL LIQUID 20 MEQ/15 ML PO ONE (11:22)
[2024-02-17] MEDS: MAGNESIUM SULF 50% (8.12 MEQ/2 ML-1 GM VIAL) IVPB ONE (12:07)
[2024-02-17] MEDS: MAGNESIUM SULFATE IN WATER 2 GM/50 ML IVPB IVPB ONE (12:07)
[2024-02-17 12:37] LABS: POTASSIUM 3.3 mmol/L (3.5-5.1)
[2024-02-17 12:38] LABS: MAGNESIUM 1.1 mg/dL (1.8-2.4)
[2024-02-17] MEDS: FAMOTIDINE 20 MG TABLET PO ONE (21:30)
[2024-02-17] MEDS ORDERED: FAMOTIDINE 20 MG TABLET ONE (21:33)
[2024-02-17 22:19] LABS: POTASSIUM 3.5 mmol/L (3.5-5.1)
[2024-02-17 22:21] LABS: MAGNESIUM 1.7 mg/dL (1.8-2.4)
[2024-02-17] MEDS ORDERED: SACUBITRIL/VALSARTAN 49 MG-51 MG TABLET ONE (22:29)
[2024-02-17] MEDS: SACUBITRIL/VALSARTAN 49 MG-51 MG TABLET PO SCH (22:29)
[2024-02-18] MEDS: ACETAMINOPHEN 1000 MG/100 ML BAG IVPB ONE (02:03)
[2024-02-18] MEDS ORDERED: MAGNESIUM SULFATE IN WATER 2 GM/50 ML IVPB IVPB ONE ×2 (02:04→09:23)
[2024-02-18] MEDS: MAGNESIUM SULF 50% (8.12 MEQ/2 ML-1 GM VIAL) IVPB ONE (02:04)
[2024-02-18] MEDS: SODIUM CHLORIDE 1,000 ML IV SCH (02:04)
[2024-02-18] MEDS: MAGNESIUM 2GM/50ML STERILE WATER IVPB IVPB ONE ×2 (03:09→09:32)
[2024-02-18 07:06] LABS: HEMATOCRIT 32.1 % (35.4-49); HEMOGLOBIN 10.8 GM/dL (11.7-16.9); MCH 31.5 pg (25.7-33.7); MCHC 33.5 g/dl (32.0-35.9); MEAN CELL VOLUME 93.9 fl (80-96); PLATELET COUNT 160 10^3/uL (134-434); RBC 3.42 M/mm3 (4.00-5.60); RDW 15.4 % (11.9-15.9); WHITE BLOOD COUNT 7.5 K/mm3 (4.0-10.0)
[2024-02-18 07:27] LABS: POTASSIUM 3.8 mmol/L (3.5-5.1)
[2024-02-18 07:30] LABS: BLOOD UREA NITROGEN 7.2 mg/dL (7-18); CALCIUM 8.1 mg/dL (8.5-10.1)
[2024-02-18 07:31] LABS: ALBUMIN 2.5 g/dl (3.4-5.0); MAGNESIUM 1.5 mg/dL (1.8-2.4)
[2024-02-18 07:33] LABS: CREATININE 0.7 mg/dL (0.55-1.3)
[2024-02-18 07:34] LABS: PHOSPHOROUS 3.2 mg/dL (2.5-4.9)
[2024-02-18 07:35] LABS: BILIRUBIN,TOTAL 0.7 mg/dL (0.2-1); TOT PROT 5.2 g/dl (6.4-8.2)
[2024-02-18] MEDS ORDERED: TAMSULOSIN HCL 0.4 MG CAP ONE (09:22)
[2024-02-18] MEDS ORDERED: ENOXAPARIN NA (PORCINE) 40 MG/0.4 ML DISP.SYRIN SQ ONE (09:22)
[2024-02-18] MEDS: ENOXAPARIN NA (PORCINE) 40 MG/0.4 ML DISP.SYRIN SQ SCH (09:32)
[2024-02-18] MEDS: TAMSULOSIN HCL 0.4 MG CAP PO SCH (09:32)
[2024-02-18] MEDS: METOPROLOL SUCCINATE 50 MG, METOPROLOL SUCCINATE 25 MG PO SCH (09:32)
[2024-02-18] MEDS ORDERED: IPRATROPIUM BR 0.02% 0.5 MG/2.5 ML VIAL.NEB. NEB PRN (09:52)
[2024-02-18] MEDS ORDERED: ACETAMINOPHEN 325 MG TABLET (FP) ONE (10:45)
[2024-02-18] MEDS: ACETAMINOPHEN 325 MG TABLET (FP) PO PRN (10:46)
[2024-02-18] MEDS ORDERED: ONDANSETRON 4 MG/2 ML VIAL ONE (10:49)
[2024-02-18] MEDS: BUDESONIDE/FORMOTEROL FUMARATE 80-4.5 MCG (10.3 GM INHALER) IH SCH (11:36)
[2024-02-19] MEDS: MAGNESIUM 1GM/D5W - 1 GM/100 ML IVPB IVPB ONE (08:14)
[2024-02-19 08:18] LABS: BASO % 0.4 % (0-2.0); EOS % 9.8 % (0-4.5); HEMATOCRIT 32.1 % (35.4-49); LYMPH % 8.2 % (8-40); MCH 31.8 pg (25.7-33.7); MCHC 34.2 g/dl (32.0-35.9); MEAN PLT VOLUME 8.9 fl (7.5-11.1); MONO % 11.9 % (3.8-10.2); NEUT % 69.7 % (42.8-82.8); PLATELET COUNT 184 10^3/uL (134-434); RBC 3.45 M/mm3 (4.00-5.60); RDW 15.7 % (11.9-15.9); WHITE BLOOD COUNT 7.2 K/mm3 (4.0-10.0)
[2024-02-19 08:41] LABS: POTASSIUM 3.4 mmol/L (3.5-5.1)
[2024-02-19 08:51] LABS: CALCIUM 8.3 mg/dL (8.5-10.1)
[2024-02-19 08:52] LABS: ALBUMIN 2.5 g/dl (3.4-5.0); BLOOD UREA NITROGEN 7.4 mg/dL (7-18); MAGNESIUM 1.8 mg/dL (1.8-2.4)
[2024-02-19 08:55] LABS: CREATININE 0.6 mg/dL (0.55-1.3)
[2024-02-19 08:57] LABS: BILIRUBIN,TOTAL 0.7 mg/dL (0.2-1); TOT PROT 5.4 g/dl (6.4-8.2)
[2024-02-19] MEDS: KCL 10 MEQ IVPB 10 MEQ/100 ML INFUS.BAG IVPB SCH (10:22)
[2024-02-19] MEDS: LOPERAMIDE HCL 2 MG CAPSULE PO PRN (17:47)
[2024-02-19] MEDS: SUCRALFATE 1 GM/10 ML UNIT DOSE CUPS NR SCH (21:38)
[2024-02-20 07:37] LABS: BASO % 0.3 % (0-2.0); HEMATOCRIT 33.7 % (35.4-49); HEMOGLOBIN 11.3 GM/dL (11.7-16.9); LYMPH % 7.4 % (8-40); MCH 31.7 pg (25.7-33.7); MCHC 33.5 g/dl (32.0-35.9); MEAN CELL VOLUME 94.6 fl (80-96); MEAN PLT VOLUME 8.9 fl (7.5-11.1); MONO % 12.9 % (3.8-10.2); NEUT % 68.4 % (42.8-82.8); PLATELET COUNT 187 10^3/uL (134-434); RBC 3.56 M/mm3 (4.00-5.60); RDW 15.8 % (11.9-15.9); WHITE BLOOD COUNT 7.7 K/mm3 (4.0-10.0)
[2024-02-20 07:56] LABS: POTASSIUM 3.5 mmol/L (3.5-5.1)
[2024-02-20 07:59] LABS: ALBUMIN 2.4 g/dl (3.4-5.0); BLOOD UREA NITROGEN 7.1 mg/dL (7-18); MAGNESIUM 1.7 mg/dL (1.8-2.4)
[2024-02-20 08:02] LABS: CREATININE 0.7 mg/dL (0.55-1.3)
[2024-02-20 08:03] LABS: BILIRUBIN,TOTAL 0.6 mg/dL (0.2-1); TOT PROT 5.2 g/dl (6.4-8.2)
[2024-02-20] MEDS: MAGNESIUM 1GM/D5W 100ML - 100 ML IVPB IVPB ONE (16:09)
[2024-02-20] MEDS: SUCRALFATE 1 GM/10 ML UNIT DOSE CUPS NR SCH (21:09)
[2024-02-21] MEDS: DIPHENOXYLATE 2.5/ATROPINE.025 1 COMBO TABLET PO PRN (00:57)
[2024-02-21] MEDS: LACTATED RINGERS SOLUTION 1,000 ML/1,000 ML INFUS.BAG IV SCH ×2 (08:43→11:11)
[2024-02-21 10:06] LABS: BASO % 0.4 % (0-2.0); EOS % 8.8 % (0-4.5); HEMATOCRIT 35.2 % (35.4-49); HEMOGLOBIN 11.9 GM/dL (11.7-16.9); LYMPH % 7.9 % (8-40); MCH 31.8 pg (25.7-33.7); MCHC 33.7 g/dl (32.0-35.9); MEAN CELL VOLUME 94.2 fl (80-96); MONO % 10.3 % (3.8-10.2); NEUT % 72.6 % (42.8-82.8); PLATELET COUNT 223 10^3/uL (134-434); RBC 3.73 M/mm3 (4.00-5.60); RDW 15.6 % (11.9-15.9); WHITE BLOOD COUNT 9.8 K/mm3 (4.0-10.0)
[2024-02-21 10:31] LABS: POTASSIUM 3.4 mmol/L (3.5-5.1)
[2024-02-21 10:43] LABS: ALBUMIN 2.6 g/dl (3.4-5.0); BLOOD UREA NITROGEN 10.2 mg/dL (7-18)
[2024-02-21 10:44] LABS: MAGNESIUM 1.7 mg/dL (1.8-2.4)
[2024-02-21 10:45] LABS: BILIRUBIN,TOTAL 0.6 mg/dL (0.2-1); TOT PROT 5.6 g/dl (6.4-8.2)
[2024-02-21 10:46] LABS: CREATININE 0.7 mg/dL (0.55-1.3)
[2024-02-21 10:50] LABS: CALCIUM 8.3 mg/dL (8.5-10.1)
[2024-02-21] MEDS: POTASSIUM CHLORIDE ORAL LIQUID 20 MEQ/15 ML PO ONE (11:09)
[2024-02-21] MEDS: METOPROLOL SUCCINATE 50 MG, METOPROLOL SUCCINATE 25 MG PO SCH (11:11)
[2024-02-21] MEDS: MAGNESIUM SULF 50% (8.12 MEQ/2 ML-1 GM VIAL) IVPB ONE (18:14)
[2024-02-22 08:38] LABS: BASO % 0.3 % (0-2.0); EOS % 8.3 % (0-4.5); HEMATOCRIT 32.1 % (35.4-49); LYMPH % 7.7 % (8-40); MCH 32.5 pg (25.7-33.7); MCHC 34.3 g/dl (32.0-35.9); MEAN CELL VOLUME 94.9 fl (80-96); MEAN PLT VOLUME 8.9 fl (7.5-11.1); MONO % 11.7 % (3.8-10.2); PLATELET COUNT 168 10^3/uL (134-434); RBC 3.39 M/mm3 (4.00-5.60); RDW 16.1 % (11.9-15.9); WHITE BLOOD COUNT 7.3 K/mm3 (4.0-10.0)
[2024-02-22 08:51] LABS: POTASSIUM 3.7 mmol/L (3.5-5.1)
[2024-02-22 08:55] LABS: CALCIUM 8.1 mg/dL (8.5-10.1)
[2024-02-22 08:56] LABS: ALBUMIN 2.4 g/dl (3.4-5.0); MAGNESIUM 1.7 mg/dL (1.8-2.4)
[2024-02-22 08:59] LABS: CREATININE 0.7 mg/dL (0.55-1.3)
[2024-02-22 09:00] LABS: BILIRUBIN,TOTAL 0.9 mg/dL (0.2-1); TOT PROT 5.1 g/dl (6.4-8.2)
[2024-02-22] MEDS: FUROSEMIDE 40 MG/4 ML INJECTABLE VIAL IVPUSH ONE (12:10)
[2024-02-22] MEDS: MAGNESIUM 2GM/50ML STERILE WATER IVPB IVPB ONE ×2 (13:10→16:16)
[2024-02-22] MEDS: PEG 3350/NA SULF BICARB CL/KCL 4000 ML SOLN.RECON PO ONE (17:30)
[2024-02-22 17:53] LABS: POTASSIUM 3.2 mmol/L (3.5-5.1)
[2024-02-22 17:55] LABS: CALCIUM 8.2 mg/dL (8.5-10.1)
[2024-02-22 17:56] LABS: ALBUMIN 2.4 g/dl (3.4-5.0); MAGNESIUM 2.5 mg/dL (1.8-2.4)
[2024-02-22 17:59] LABS: CREATININE 0.7 mg/dL (0.55-1.3)
[2024-02-22 18:00] LABS: BILIRUBIN,TOTAL 0.7 mg/dL (0.2-1); TOT PROT 5.3 g/dl (6.4-8.2)
[2024-02-22 22:30] LABS: POTASSIUM 3.3 mmol/L (3.5-5.1)
[2024-02-22 22:31] LABS: CALCIUM 8.4 mg/dL (8.5-10.1)
[2024-02-22 22:32] LABS: BLOOD UREA NITROGEN 9.6 mg/dL (7-18); MAGNESIUM 2.4 mg/dL (1.8-2.4)
[2024-02-22 22:35] LABS: CREATININE 0.9 mg/dL (0.55-1.3); PHOSPHOROUS 2.4 mg/dL (2.5-4.9)
[2024-02-23] MEDS: KCL 10 MEQ IVPB 10 MEQ/100 ML INFUS.BAG IVPB SCH (00:38)
[2024-02-23 13:26] LABS: BASO % 0.4 % (0-2.0); EOS % 12.9 % (0-4.5); HEMATOCRIT 36.5 % (35.4-49); HEMOGLOBIN 12.5 GM/dL (11.7-16.9); MCHC 34.1 g/dl (32.0-35.9); MEAN CELL VOLUME 93.7 fl (80-96); MONO % 9.4 % (3.8-10.2); NEUT % 69.3 % (42.8-82.8); PLATELET COUNT 214 10^3/uL (134-434); RDW 15.7 % (11.9-15.9)
[2024-02-23 13:44] LABS: POTASSIUM 3.6 mmol/L (3.5-5.1)
[2024-02-23 13:47] LABS: ALBUMIN 2.7 g/dl (3.4-5.0); CALCIUM 8.6 mg/dL (8.5-10.1); MAGNESIUM 2.2 mg/dL (1.8-2.4)
[2024-02-23 13:50] LABS: CREATININE 0.6 mg/dL (0.55-1.3)
[2024-02-23 13:52] LABS: BILIRUBIN,TOTAL 0.7 mg/dL (0.2-1); TOT PROT 5.8 g/dl (6.4-8.2)
[2024-02-23] MEDS ORDERED: ALBUTEROL SO4 2.5/IPRATROPIUM 0.5 INH SOL 3 ML VIAL.NEB. NEB PRN (23:03)
[2024-02-24 14:23] LABS: BASO % 0.2 % (0-2.0); EOS % 7.8 % (0-4.5); HEMATOCRIT 34.6 % (35.4-49); HEMOGLOBIN 11.7 GM/dL (11.7-16.9); LYMPH % 7.9 % (8-40); MCH 31.8 pg (25.7-33.7); MCHC 33.7 g/dl (32.0-35.9); MEAN CELL VOLUME 94.2 fl (80-96); MEAN PLT VOLUME 8.5 fl (7.5-11.1); MONO % 9.8 % (3.8-10.2); NEUT % 74.3 % (42.8-82.8); PLATELET COUNT 245 10^3/uL (134-434); RBC 3.67 M/mm3 (4.00-5.60); RDW 15.8 % (11.9-15.9); WHITE BLOOD COUNT 8.1 K/mm3 (4.0-10.0)
[2024-02-24 14:41] LABS: POTASSIUM 3.2 mmol/L (3.5-5.1)
[2024-02-24 14:44] LABS: CALCIUM 8.3 mg/dL (8.5-10.1)
[2024-02-24 14:45] LABS: ALBUMIN 2.5 g/dl (3.4-5.0); BLOOD UREA NITROGEN 10.3 mg/dL (7-18); MAGNESIUM 1.8 mg/dL (1.8-2.4)
[2024-02-24 14:48] LABS: CREATININE 0.7 mg/dL (0.55-1.3)
[2024-02-24 14:49] LABS: BILIRUBIN,TOTAL 0.8 mg/dL (0.2-1); TOT PROT 5.6 g/dl (6.4-8.2)
[2024-02-24 15:09] LABS: ERYTHROCYTE SEDIMENTATION RATE 32 mm/hr (0-20)
[2024-02-24] MEDS: POTASSIUM CHLORIDE ORAL LIQUID 20 MEQ/15 ML PO ONE (15:16)
[2024-02-24] MEDS: methylPREDNISolone NA SUCC 40 MG/1 ML VIAL IVPUSH SCH (15:23)
[2024-02-24] MEDS: ALBUTEROL SO4 2.5/IPRATROPIUM 0.5 INH SOL 3 ML VIAL.NEB. NEB SCH (15:31)
[2024-02-24] MEDS: FUROSEMIDE 40 MG/4 ML INJECTABLE VIAL IVPUSH ONE (18:00)
[2024-02-25 08:24] LABS: BASO % 0.1 % (0-2.0); EOS % 0.5 % (0-4.5); HEMATOCRIT 34.5 % (35.4-49); LYMPH % 6.2 % (8-40); MCH 32.6 pg (25.7-33.7); MCHC 34.9 g/dl (32.0-35.9); MEAN CELL VOLUME 93.5 fl (80-96); MEAN PLT VOLUME 8.1 fl (7.5-11.1); NEUT % 83.2 % (42.8-82.8); PLATELET COUNT 231 10^3/uL (134-434); RBC 3.69 M/mm3 (4.00-5.60); WHITE BLOOD COUNT 6.6 K/mm3 (4.0-10.0)
[2024-02-25 08:48] LABS: POTASSIUM 3.8 mmol/L (3.5-5.1)
[2024-02-25 09:11] LABS: ALBUMIN 2.7 g/dl (3.4-5.0); CALCIUM 8.8 mg/dL (8.5-10.1); MAGNESIUM 1.8 mg/dL (1.8-2.4)
[2024-02-25 09:14] LABS: CREATININE 0.6 mg/dL (0.55-1.3)
[2024-02-25 09:16] LABS: BILIRUBIN,TOTAL 0.5 mg/dL (0.2-1); TOT PROT 5.8 g/dl (6.4-8.2)
[2024-02-25] MEDS: CALCIUM 250MG/VIT-D 125 UNITS 1 COMBO TABLET PO SCH (11:57)
[2024-02-25] MEDS: FUROSEMIDE 40 MG TABLET (FP) PO SCH (11:57)
[2024-02-25] MEDS: FAMOTIDINE 20 MG TABLET PO ONE (23:52)
[2024-02-26 08:38] LABS: BASO % 0.3 % (0-2.0); EOS % 1.1 % (0-4.5); HEMATOCRIT 31.8 % (35.4-49); LYMPH % 11.3 % (8-40); MCH 32.4 pg (25.7-33.7); MCHC 34.5 g/dl (32.0-35.9); MEAN CELL VOLUME 93.9 fl (80-96); MEAN PLT VOLUME 8.5 fl (7.5-11.1); MONO % 14.6 % (3.8-10.2); NEUT % 72.7 % (42.8-82.8); PLATELET COUNT 219 10^3/uL (134-434); RBC 3.38 M/mm3 (4.00-5.60); RDW 15.8 % (11.9-15.9); WHITE BLOOD COUNT 5.8 K/mm3 (4.0-10.0)
[2024-02-26 09:01] LABS: POTASSIUM 3.5 mmol/L (3.5-5.1)
[2024-02-26 09:12] LABS: ALBUMIN 2.5 g/dl (3.4-5.0)
[2024-02-26 09:13] LABS: BLOOD UREA NITROGEN 11.1 mg/dL (7-18); TOT PROT 5.4 g/dl (6.4-8.2)
[2024-02-26 09:15] LABS: BILIRUBIN,TOTAL 0.4 mg/dL (0.2-1); CALCIUM 8.6 mg/dL (8.5-10.1); MAGNESIUM 1.7 mg/dL (1.8-2.4)
[2024-02-26 09:16] LABS: CREATININE 0.7 mg/dL (0.55-1.3)
[2024-02-26] MEDS: FAMOTIDINE 20 MG TABLET PO SCH (09:17)
[2024-02-26] MEDS: FUROSEMIDE 40 MG/4 ML INJECTABLE VIAL IVPUSH ONE (13:12)
[2024-02-26] MEDS: MAGNESIUM SULF 50% (8.12 MEQ/2 ML-1 GM VIAL) IVPB ONE (15:39)
[2024-02-26 21:07] LABS: GLIADIN ANTIBODY IGA 4 units (0-19); GLIADIN ANTIBODY IGG 3 units (0-19); TRANSGLUTAMINASE IGG < 2 U/mL (0-5)
[2024-02-26] MEDS: guaiFENesin 200 MG/10 ML 10 ML UNIT-DOSE CUPS PO PRN (21:59)
[2024-02-27 08:31] LABS: BASO % 0.4 % (0-2.0); EOS % 5.3 % (0-4.5); HEMATOCRIT 34.6 % (35.4-49); HEMOGLOBIN 11.9 GM/dL (11.7-16.9); LYMPH % 7.8 % (8-40); MCH 32.4 pg (25.7-33.7); MCHC 34.4 g/dl (32.0-35.9); MEAN CELL VOLUME 94.1 fl (80-96); MEAN PLT VOLUME 8.2 fl (7.5-11.1); MONO % 13.7 % (3.8-10.2); NEUT % 72.8 % (42.8-82.8); PLATELET COUNT 288 10^3/uL (134-434); RBC 3.68 M/mm3 (4.00-5.60); WHITE BLOOD COUNT 6.7 K/mm3 (4.0-10.0)
[2024-02-27 08:51] LABS: POTASSIUM 3.7 mmol/L (3.5-5.1)
[2024-02-27 09:00] LABS: ALBUMIN 2.6 g/dl (3.4-5.0); BLOOD UREA NITROGEN 11.6 mg/dL (7-18); CREATININE 0.8 mg/dL (0.55-1.3)
[2024-02-27 09:02] LABS: BILIRUBIN,TOTAL 0.6 mg/dL (0.2-1); TOT PROT 5.6 g/dl (6.4-8.2)
[2024-02-27 11:53] VITALS: BMI 23.3
[2024-02-28] MEDS: SODIUM CHLORIDE 250 ML IV STA (05:53)
[2024-02-28 07:08] LABS: CMV IgM < 30.0 AU/mL (0.0-29.9)
[2024-02-28] MEDS: ZINC SULFATE 220 MG CAPSULE (FP) PO SCH (09:14)
[2024-02-28] MEDS: MULTIVITAMINS THER W-MINERALS COMBO TABLET (FP) PO SCH (09:14)
[2024-02-28 10:01] LABS: BASO % 0.4 % (0-2.0); EOS % 6.7 % (0-4.5); HEMATOCRIT 30.1 % (35.4-49); HEMOGLOBIN 10.4 GM/dL (11.7-16.9); LYMPH % 7.5 % (8-40); MCH 32.6 pg (25.7-33.7); MCHC 34.7 g/dl (32.0-35.9); MEAN PLT VOLUME 8.3 fl (7.5-11.1); MONO % 12.3 % (3.8-10.2); NEUT % 73.1 % (42.8-82.8); PLATELET COUNT 194 10^3/uL (134-434); RDW 16.2 % (11.9-15.9); WHITE BLOOD COUNT 5.8 K/mm3 (4.0-10.0)
[2024-02-28 10:30] LABS: POTASSIUM 3.7 mmol/L (3.5-5.1)
[2024-02-28 10:32] LABS: CALCIUM 8.5 mg/dL (8.5-10.1)
[2024-02-28 10:33] LABS: ALBUMIN 2.4 g/dl (3.4-5.0); BLOOD UREA NITROGEN 13.3 mg/dL (7-18); MAGNESIUM 1.8 mg/dL (1.8-2.4)
[2024-02-28 10:35] LABS: BILIRUBIN,TOTAL 0.5 mg/dL (0.2-1); TOT PROT 4.9 g/dl (6.4-8.2)
[2024-02-28 10:36] LABS: CREATININE 0.8 mg/dL (0.55-1.3)
[2024-02-28] MEDS: SODIUM CHLORIDE 1,000 ML IV SCH (13:54)
[2024-02-28] MEDS: LACTOBACILLUS ACIDOPHILUS 1 TABLET PO SCH (18:16)
[2024-02-28] MEDS: ALBUTEROL SO4 2.5/IPRATROPIUM 0.5 INH SOL 3 ML VIAL.NEB. NEB SCH (20:35)
[2024-02-28] MEDS: SACUBITRIL/VALSARTAN 49 MG-51 MG TABLET PO SCH (21:28)
[2024-02-28] MEDS: BUDESONIDE/FORMOTEROL FUMARATE 80-4.5 MCG (10.3 GM INHALER) IH SCH (21:28)
[2024-02-28] MEDS: SUCRALFATE 1 GM/10 ML UNIT DOSE CUPS PO SCH (21:28)
[2024-02-29] MEDS: guaiFENesin 200 MG/10 ML 10 ML UNIT-DOSE CUPS PO PRN (01:41)
[2024-02-29 08:54] LABS: BASO % 0.4 % (0-2.0); EOS % 6.6 % (0-4.5); HEMOGLOBIN 11.2 GM/dL (11.7-16.9); LYMPH % 6.6 % (8-40); MCH 31.4 pg (25.7-33.7); MCHC 32.8 g/dl (32.0-35.9); MEAN CELL VOLUME 95.7 fl (80-96); MEAN PLT VOLUME 8.5 fl (7.5-11.1); MONO % 9.3 % (3.8-10.2); NEUT % 77.1 % (42.8-82.8); PLATELET COUNT 242 10^3/uL (134-434); RBC 3.55 M/mm3 (4.00-5.60); RDW 15.8 % (11.9-15.9); WHITE BLOOD COUNT 7.6 K/mm3 (4.0-10.0)
[2024-02-29 09:12] LABS: POTASSIUM 3.5 mmol/L (3.5-5.1)
[2024-02-29 09:20] LABS: CALCIUM 8.8 mg/dL (8.5-10.1)
[2024-02-29] MEDS: ACETAMINOPHEN 325 MG TABLET (FP) PO PRN (09:20)
[2024-02-29] MEDS: TAMSULOSIN HCL 0.4 MG CAP PO SCH (09:20)
[2024-02-29] MEDS: FUROSEMIDE 40 MG TABLET (FP) PO SCH (09:20)
[2024-02-29 09:21] LABS: ALBUMIN 2.5 g/dl (3.4-5.0); BLOOD UREA NITROGEN 13.4 mg/dL (7-18); MAGNESIUM 1.8 mg/dL (1.8-2.4)
[2024-02-29] MEDS: CALCIUM 250MG/VIT-D 125 UNITS 1 COMBO TABLET PO SCH (09:23)
[2024-02-29 09:24] LABS: CREATININE 0.8 mg/dL (0.55-1.3)
[2024-02-29 09:25] LABS: BILIRUBIN,TOTAL 0.6 mg/dL (0.2-1)
[2024-02-29 09:26] LABS: TOT PROT 5.4 g/dl (6.4-8.2)
[2024-02-29] MEDS: PANTOPRAZOLE 40 MG TABLET PO SCH (15:03)
[2024-02-29] MEDS ORDERED: methylPREDNISolone NA SUCC 40 MG/1 ML VIAL IVPUSH SCH ×2 (18:00)
[2024-02-29 20:42] VITALS: TEMP 97.7
[2024-03-01 09:26] LABS: BASO % 0.8 % (0-2.0); EOS % 6.4 % (0-4.5); HEMATOCRIT 36.8 % (35.4-49); HEMOGLOBIN 11.9 GM/dL (11.7-16.9); LYMPH % 8.1 % (8-40); MCH 31.4 pg (25.7-33.7); MCHC 32.5 g/dl (32.0-35.9); MEAN CELL VOLUME 96.7 fl (80-96); MEAN PLT VOLUME 8.8 fl (7.5-11.1); MONO % 9.5 % (3.8-10.2); NEUT % 75.2 % (42.8-82.8); PLATELET COUNT 252 10^3/uL (134-434); RDW 15.9 % (11.9-15.9)
[2024-03-01 09:44] LABS: POTASSIUM 3.2 mmol/L (3.5-5.1)
[2024-03-01 09:47] LABS: CALCIUM 8.9 mg/dL (8.5-10.1)
[2024-03-01 09:48] LABS: ALBUMIN 2.7 g/dl (3.4-5.0); BLOOD UREA NITROGEN 12.4 mg/dL (7-18); MAGNESIUM 1.7 mg/dL (1.8-2.4)
[2024-03-01 09:51] LABS: CREATININE 0.8 mg/dL (0.55-1.3)
[2024-03-01 09:52] LABS: BILIRUBIN,TOTAL 0.6 mg/dL (0.2-1); TOT PROT 5.8 g/dl (6.4-8.2)
[2024-03-01] MEDS: MAGNESIUM 2GM/50ML STERILE WATER IVPB IVPB ONE (10:48)
[2024-03-01] MEDS: POTASSIUM CHLORIDE ORAL LIQUID 20 MEQ/15 ML PO ONE (10:48)
[2024-03-01] MEDS: MAGNESIUM OXIDE 400 MG TABLET (FP) PO ONE (12:21)
[2024-03-01] MEDS: POTASSIUM CHLORIDE TABS 20 MEQ TABLET.ER (FP) PO ONE (12:21)
[2024-03-01] MEDS: MULTIVITAMINS (DAILY MVI) TABLET (FP) PO ONE (12:21)
[2024-03-01] MEDS: KCL 10 MEQ IVPB 10 MEQ/100 ML INFUS.BAG IVPB SCH (12:22)
[2024-03-01 12:54] VITALS: BP 100/70; PULSE 70; RESP 18
[2024-03-01 15:07] LABS: STOOL OSMO 439 mOsmol/kg (Not Estab.)
== END 2024-03-01 14:30 | disposition home health service (06) | DRG 394 ==
LOC: JER 05:52 → JERBED 15:11 → J4S 02-18 18:31 → J6S 02-27 18:43
PROVIDERS: ADMIT Internal Medicine; ATTEND Nurse Practitioner Family
PROC: 0DBN8ZX Excision of Sigmoid Colon, Via Natural or Artificial Opening Endoscopic, Diagnostic (ICD-10-PCS; 2024-02-19)
PROC: 0DB68ZX Excision of Stomach, Via Natural or Artificial Opening Endoscopic, Diagnostic (ICD-10-PCS; principal; 2024-02-19 11:00)
PROC: 0DBP8ZX Excision of Rectum, Via Natural or Artificial Opening Endoscopic, Diagnostic (ICD-10-PCS; 2024-02-19 11:00)
PROC: 0DBF8ZX Excision of Right Large Intestine, Via Natural or Artificial Opening Endoscopic, Diagnostic (ICD-10-PCS; 2024-02-23)
PROC: 0DBG8ZX Excision of Left Large Intestine, Via Natural or Artificial Opening Endoscopic, Diagnostic (ICD-10-PCS; 2024-02-23)
PROC: 0DBB8ZX Excision of Ileum, Via Natural or Artificial Opening Endoscopic, Diagnostic (ICD-10-PCS; 2024-02-23)
DX: K62.7 Radiation proctitis (principal); I50.22 Chronic systolic (congestive) heart failure; J96.11 Chronic respiratory failure with hypoxia; K92.1 Melena; K63.3 Ulcer of intestine; J44.9 Chronic obstructive pulmonary disease, unspecified; Z99.81 Dependence on supplemental oxygen; K21.9 Gastro-esophageal reflux disease without esophagitis; I11.0 Hypertensive heart disease with heart failure; E86.0 Dehydration; F41.9 Anxiety disorder, unspecified; E83.42 Hypomagnesemia; R19.7 Diarrhea, unspecified; D45 Polycythemia vera; K29.60 Other gastritis without bleeding; I71.20 Thoracic aortic aneurysm, without rupture, unspecified; C61 Malignant neoplasm of prostate; E87.6 Hypokalemia
CPT/HCPCS: 36415; 71250-TC; 74177-TC; 80048; 80053; 82272; 82438; 82784; 83516; 83605; 83735; 84100; 84132; 84302; 84443; 84999; 85025; 85027; 85610; 85651; 85730; 86140; 86480; 86644; 86645; 86704; 86850; 86900; 86901; 87045; 87046; 87186; 87205; 87209; 87324; 87328; 87329; 87340; 87449; 87497; 87517; 88305-TC; 88342-TC; 93005; 93010; 94640; 97116-GP; 97161-GP; 99285-25; J0131; Q9967

== ENCOUNTER 2024-06-14 06:28 | Day surgery (SDC) | payer OTHER ==
[2024-06-14 10:51] VITALS: BMI 21.9
[2024-06-14 12:49] VITALS: RESP 18; TEMP 98
[2024-06-14 13:51] VITALS: BP 134/77; PULSE 67
== END 2024-06-14 13:52 | disposition home or self-care (01) ==
LOC: JASU-ENDO 06:28
PROVIDERS: ATTEND Internal Medicine Gastroenterology
PROC: 0DBN8ZX Excision of Sigmoid Colon, Via Natural or Artificial Opening Endoscopic, Diagnostic (ICD-10-PCS; 2024-06-14)
PROC: 0DBP8ZX Excision of Rectum, Via Natural or Artificial Opening Endoscopic, Diagnostic (ICD-10-PCS; principal; 2024-06-14 12:00)
DX: K51.312 Ulcerative (chronic) rectosigmoiditis with intestinal obstruction (principal); K51.40 Inflammatory polyps of colon without complications
CPT/HCPCS: 88305-TC